=== PATIENT | female | born 1950 | race Caucasian/White ===

== ENCOUNTER 2020-07-05 10:30 | Outpatient (CLI) | payer MEDICARE, SELFPAY ==
--- NOTE | ~2020-07-05 | MM_ITS ---
EXAMINATION: MM screening natalia BI w mona HISTORY: Screening TECHNIQUE: Craniocaudal and mediolateral oblique 3-D tomosynthesis images were obtained and synthetic 2-D images were generated. CAD analysis was submitted and interpreted. COMPARISON: Comparison to multiple prior studies sequentially, with oldest reviewed study dated 11/19. BREAST PARENCHYMAL COMPOSITION: There are scattered areas of fibroglandular density. FINDINGS: There is no evidence of suspicious mass, calcification, or architectural distortion to sugg est malignancy in either breast. There has been no suspicious interval change. IMPRESSION: 1. No mammographic evidence of malignancy. 2. Recommend routine screening mammography in one year. BI-RADS Category 1: Negative Reviewed, dictated and finalized at location A.
== END 2020-07-05 10:31 | disposition home or self-care (01) ==
LOC: ANHIMG 10:32
PROVIDERS: PCP Student in an Organized Health Care Education/Training Program; Visit Provider Student in an Organized Health Care Education/Training Program
DX: Z12.31 Encounter for screening mammogram for malignant neoplasm of breast (principal)
CPT/HCPCS: 77063; 77067

== ENCOUNTER 2021-05-20 16:00 | Emergency (ER) | payer MEDICARE, SELFPAY ==
--- NOTE | 2021-05-20 16:13 | ECG_ITS ---
Measurements Intervals [place] Rate: 75 P: -9 [place]: 149 QRS: 74 QRSD: 94 T: 60 QT: 396 QTc: 444 Interpretive Statements SINUS RHYTHM BORDERLINE ST ABNORMALITY- ANTEROLAT/INF LEADS BASELINE WANDER- V6 BORDERLINE ECG Electronically Signed On 05-21-2021 10:10:21 CDT by Vikram Li D.O.
[2021-05-20 16:17] VITALS: BP 184/104; PULSE 76; RESP 18; TEMP 37.4; O2SAT 98
[2021-05-20 16:30] LABS: Basophils Percent Auto 0.6 % (0.2-1.2); Eosinophils Absolute Auto 0.1 K/mm3 (0-0.3); Eosinophils Percent Auto 1.7 % (0-4.4); Hematocrit 41.7 % (37.0-47.0); Hemoglobin 13.4 g/dL (12.0-15.0); Immature Granulocyte Absolute 0.04 K/mm3 (0.00-0.031); Immature Granulocyte Percent A 0.6 % (0-0.5); Lymphocytes Absolute Auto 1.86 K/mm3 (0.9-3.2); Lymphocytes Percent Auto 25.7 % (18.3-44.2); Mean Corpuscular HGB Conc 32.1 g/dl (32-36); Mean Corpuscular Hemoglobin 32.1 pg (26-34); Mean Corpuscular Volume 99.8 fl (80-100); Monocytes Absolute Auto 0.8 K/mm3 (0.1-0.6); Monocytes Percent Auto 10.5 % (2.6-8.5); Neutrophils Absolute Auto 4.4 K/mm3 (1.3-6.7); Neutrophils Percent Auto 60.9 % (45.5-73.1); Platelet Count Result 344 k/mm3 (150-375); Red Blood Count 4.18 M/mm3 (4.2-5.4); Red Cell Distribution Width 15.7 % (11.5-14.5); White Blood Count 7.2 K/mm3 (4.5-10.0)
[2021-05-20 16:54] LABS: Alanine Aminotransferase 16 U/L (4-35); Albumin Level 4.1 g/dL (3.5-5.1); Alkaline Phosphatase 81 U/L (38-126); Anion Gap 8 mmol/L (8-16); Aspartate Amino Transferase 28 U/L (14-36); Bilirubin,Total 0.6 mg/dL (0.2-1.3); Blood Urea Nitrogen 11 mg/dL (7-17); Calcium 9.1 mg/dL (8.4-10.2); Carbon Dioxide 23 mmol/L (22-30); Chloride 109 mmol/L (98-107); Estimated CRCL calculation 49 ml/min; Estimated Glomerular Filt Rate > 60; Glucose 91 mg/dL (65-110); Sodium 140 mmol/L (137-145)
[2021-05-20 16:59] LABS: Potassium 3.9 mmol/L (3.4-5.0)
--- NOTE | 2021-05-20 19:02 | PC.NURSE ---
pt wanting to leave due to wait times. pt encouraged to speak to pcp and cardiac providers. pt asked to return if s/s increased. pt agreeable
== END 2021-05-21 05:29 | disposition left against medical advice (07) ==
LOC: ANHED 19:25
PROVIDERS: Emergency Provider Emergency Medicine; PCP Student in an Organized Health Care Education/Training Program
DX: I10 Essential (primary) hypertension (principal)
CPT/HCPCS: 36415; 80053; 85025; 93005; 99199

== ENCOUNTER 2021-05-28 01:46 | Day surgery (SDC) | payer MEDICARE, SELFPAY ==
[2021-05-27 17:10] VITALS: BMI 22.8
[2021-05-28] VITALS (22 sets, daily range): BP systolic 74–186; BP diastolic 43–99; PULSE 60–80; RESP 16–20; TEMP 36.4–36.6; O2SAT 96–100; BMI 23.0
--- NOTE | 2021-05-28 07:00 | SUR.PREOP ---
ARRIVES AMBULATORY TO [facility] 5 W/ , YISSEL, AT SIDE. HERE FOR SCHEDULED C W/ DR. TIERNEY. DENIES CP OR SOB ON ARRIVAL. ORIENTED TO ROOM, PLAN OF CARE, PROCEDURE. IV STARTED, LABS SENT, VS OBTAINED, CONSENT SIGNED, SKIN PREPPED, PULSES MARKED. WILL CONTINUE TO MONITOR.
[2021-05-28 07:21] LABS: Basophils Percent Auto 0.5 % (0.2-1.2); Eosinophils Absolute Auto 0.2 K/mm3 (0-0.3); Eosinophils Percent Auto 2.2 % (0-4.4); Hematocrit 40.8 % (37.0-47.0); Hemoglobin 13.1 g/dL (12.0-15.0); Immature Granulocyte Absolute 0.03 K/mm3 (0.00-0.031); Immature Granulocyte Percent A 0.4 % (0-0.5); Mean Corpuscular HGB Conc 32.1 g/dl (32-36); Mean Corpuscular Hemoglobin 32.3 pg (26-34); Mean Corpuscular Volume 100.5 fl (80-100); Mean Platelet Volume 8.7 fl (7.4-10.4); Monocytes Absolute Auto 0.9 K/mm3 (0.1-0.6); Monocytes Percent Auto 10.5 % (2.6-8.5); Neutrophils Absolute Auto 5.3 K/mm3 (1.3-6.7); Neutrophils Percent Auto 64.4 % (45.5-73.1); Platelet Count Result 311 k/mm3 (150-375); Red Blood Count 4.06 M/mm3 (4.2-5.4); Red Cell Distribution Width 15.5 % (11.5-14.5); White Blood Count 8.2 K/mm3 (4.5-10.0)
[2021-05-28 07:30] LABS: Anion Gap 5 mmol/L (8-16); Blood Urea Nitrogen 19 mg/dL (7-17); Calcium 9.3 mg/dL (8.4-10.2); Carbon Dioxide 27 mmol/L (22-30); Chloride 107 mmol/L (98-107); Estimated CRCL calculation 44 ml/min; Estimated Glomerular Filt Rate > 60; Glucose 100 mg/dL (65-110); Potassium 4.1 mmol/L (3.4-5.0); Sodium 139 mmol/L (137-145)
[2021-05-28] MEDS: SODIUM CHLORIDE 0.9% IV 500 ML 100 ML IV CONT (07:30)
--- NOTE | 2021-05-28 09:11 | WPDMODSED ---
Moderate Sedation Note-Pt Data Patient Data Allergies Allergy/AdvReac Type Severity Reaction Status Date / Time Sulfa (Sulfonamide Allergy Unknown Nausea Verified 05/28/21 08:06 Antibiotics) Home Medications Medication Instructions Recorded Confirmed Type apremilast 30 mg tablet 30 mg PO BID 07/10/20 05/28/21 History aspirin 81 mg tablet,delayed 81 mg PO DAILY 07/10/20 05/28/21 History release escitalopram oxalate 20 mg tablet 20 mg PO DAILY 07/10/20 05/28/21 History folic acid 1 mg tablet 1 mg PO DAILY 07/10/20 05/28/21 History lisinopril 40 mg tablet 40 mg PO DAILY 07/10/20 05/28/21 History rosuvastatin 40 mg tablet 40 mg PO DAILY 07/10/20 05/28/21 History tofacitinib 11 mg tablet,extended 11 mg PO DAILY 07/10/20 05/28/21 History release 24 hr tramadol 50 mg tablet 50 mg PO Q6H PRN 07/10/20 05/27/21 History zolpidem 10 mg tablet 10 mg PO HS 07/10/20 05/27/21 History alprazolam 0.25 mg PO TID PRN 05/28/21 05/28/21 History carvedilol 12.5 mg PO BID 05/28/21 05/28/21 History Current Medications: Active Medications Sodium Chloride (Normal Saline Iv) 500 mls @ 100 mls/hr IV CONT .Q5H QUIN Sedation/Anesthesia: No previous sedation/anesthesia problems (including family history). [facility] Past Medical History Medical History (Updated 07/10/20 @ 14:20 by Magy Jamison) Heart attack Hypertension Macular degeneration Psoriatic arthritis Rheumatoid arthritis Surgical History Surgical History History of arthroscopic knee surgery History of carpal tunnel release History of hysterectomy Family History Family History Father Family history of premature coronary heart disease Family history of coronary artery disease Mother Hypertension Family history of elevated blood lipids Sibling Hypertension Social History Social History Smoking status: Former smoker Tobacco type: cigarettes Second hand tobacco smoke exposure: No Additional smoking assessment comments: 20 years 1/2-1PPD Alcohol intake: never Substance use: never Substance use type: does not use Living arrangements: with family Sexual Orientation (if Verbalized by the Patient): Straight or Heterosexual Spiritual care concerns: No Mod Sed Physical Exam Physical Exam Pre Procedural Exam: Normal: Airway Hours since solid foods: 10 Hours since liquid intake: 10 Mallampati Classification: class II Internal Medicine - PN: Obj Da Vital Signs Vital Signs: Vital Signs - 24 hr 05/28/21 07:15 Temperature 36.6 C Pulse Rate 73 Respiratory Rate 18 Blood Pressure 186/99 H Pulse Oximetry 100 Meds/Results Medications: Active Medications Generic Name Dose Route Start Last Admin Trade Name Freq PRN Reason Stop Dose Admin Sodium Chloride 500 mls @ 100 mls/hr 05/28/21 07:00 Normal Saline Iv IV CONT .Q5H QUIN Labs CBC & Chem 7: 05/28/21 07:14 05/28/21 07:14 Labs: Laboratory Results - last 24 hr 05/28/21 05/28/21 07:14 07:14 WBC 8.2 RBC 4.06 L Hgb 13.1 Hct 40.8 MCV 100.5 H MCH 32.3 MCHC 32.1 RDW 15.5 H Plt Count 311 MPV 8.7 Immature Gran % (Auto) 0.4 Neut % (Auto) 64.4 Lymph % (Auto) 22.0 [place] % (Auto) 10.5 H Eos % (Auto) 2.2 Baso % (Auto) 0.5 Lymph # (Auto) 1.80 [place] # (Auto) 0.9 H Eos # (Auto) 0.2 Baso # (Auto) 0.0 Abs Immat Gran (auto) 0.03 Absolute Neuts (auto) 5.3 Absolute Nucleated RBC 0.0 Nucleated RBC % 0.0 Sodium 139 Potassium 4.1 Chloride 107 Carbon Dioxide 27 Anion Gap 5 L BUN 19 H Creatinine 0.90 Estim Creat Clear Calc 44 Estimated GFR > 60 Glucose 100 Calcium 9.3 ASA Classification/Sedation ASA Classification/Sedation ASA Class: III Emergent: No Risks: Risks, benefits and alternativ
--- NOTE | 2021-05-28 09:13 | WPDHPUPDATE1 ---
History and Physical Update Update Date/Time: 05/28/21 09:13 History and Physical has been reviewed, including an updated exam of the patient. There are NO changes in the patient's condition. Risks, benefits, and alternatives have been discussed and questions answered. Patient agrees to proceed with procedure.
--- NOTE | 2021-05-28 09:53 | WPDCARDPROC ---
Cardiac Cath Procedure Note Date of procedure:: 05/28/21 Performing physician:: Donaldo Zaragoza MD Procedure Procedure note:: LEFT HEART CATHETERIZATION, CORONARY ANGIOGRAM AND PERIPHERAL ANGIOGRAM REPORT DATE OF PROCEDURE: 05/28/2021 INDICATION FOR PROCEDURE: Dyspnea on exertion, known CAD, history of PCI/stenting BRIEF CLINICAL HISTORY: 71-year-old female with CAD, history of inferior ST-elevation SC status post primary PCI with placement of 2 drug-eluting stents in mid RCA on 03/19/2012; status post staged PCI of mid LCX using drug-eluting stent on 04/13/2012; hypertension. Patient has been experiencing dyspnea on exertion. She had MPI done on 12/24/2020 which reportedly showed findings suggestive of ischemia on the EKG; perfusion imaging was negative for ischemia with normal LVEF. Due to patient's ongoing persistent symptoms of dyspnea on exertion, coronary angiogram was recommended to re-evaluate coronary anatomy and rule out InStent restenosis. Benefits and risks of the procedure were discussed with the patient in depth, and informed consent was obtained prior to the procedure. Risks of the procedure include but are not limited to vascular complications including groin hematoma, retroperitoneal bleed, vessel perforation; periprocedural SC, cardiac arrhythmias, stroke, contrast induced nephropathy, and . After discussing all the benefits, risks and alternatives, patient was willing to proceed with the procedure. PROCEDURES PERFORMED: 1. Left heart catheterization- Selective left and right coronary angiogram; left ventriculogram and hemodynamic assessment 2. Distal abdominal aortogram with bilateral iliac runoff 2. Selective right common femoral angiogram 3. Moderate sedation-CPT code 77493 MODERATE SEDATION: Midazolam 2 mg; fentanyl 50 mcg; Start time 0924 , Stop time 0949 ; Total [id number] time 25 minutes; Aris Nunez RN was trained observer for moderate sedation. ACCESS SITE: Right common femoral artery PROCEDURE NOTE: After obtaining informed consent, patient was brought to catheterization lab and prepped and draped in a usual sterile manner. After local anesthesia with lidocaine, right common femoral artery access was taken with micropuncture needle followed by insertion of a 5 Kiswahili sheath. There was difficulty in advancing the diagnostic catheter in the common iliac artery. Selective right common femoral angiogram showed stenosis in the iliac artery. Therefore, 035 Glidewire was used to navigate the stenosis in the iliac artery and the aneurysm in the distal abdominal aorta. Next, Selective left and right coronary angiogram was performed using 5 Kiswahili JL4 and JR4 catheters respectively. Orthogonal views were taken. Next, a 5 Kiswahili pigtail catheter was advanced in the LV cavity and was flushed with normal saline. LV pressure measurement was performed. After this, left ventriculogram was performed. The catheter was flushed again, and gradient across the aortic valve was measured on the pullback of the catheter . Due to early of difficulty in advancing the wire in the iliac artery, we proceeded with the distal abdominal aortogram using the pigtail catheter with DSA. After completion of the procedure, sheath was secured in place which will be taken out in the laborer pie [employer] holding area, manual pressure will be used for local hemostasis. Patient had severe hypertension in the [employer], and received 20 mg of IV hydralazine at 2 different intervals with improvement in the blood pressure. Patient tolerated procedure well without any immediate procedure related complications. FINDINGS: LEFT MAIN CORONARY: The left main coronary artery is a medium to large caliber vessel with minimal irregularities, no significant focal stenosis. The vessel bifurcates into LAD and left circumflex branches. LEFT ANTERIOR DESCENDING ARTERY: The proximal LAD is a medium to large caliber vessel. There is eccentric about 40% stenosis at t
[2021-05-28] MEDS: SODIUM CHLORIDE 0.9% IV 1,000 ML 125 ML IV CONT (10:30)
--- NOTE | 2021-05-28 17:45 | SUR.PHASEII ---
DISCHARGE INSTRUCTIONS GIVEN AND REVIEWED W/ PT AT 1735. QUESTIONS ANSWERED AND VOICED UNDERSTANDING OF ALL. DISCHARGED HOME, OUT VIA WC, TO 'S WAITING CAR AT 1745, WITH ALL PERSONAL BELONGINGS AND DISCHARGE PACKET. VOICES NO C/O. NO DISTRESS NOTED.
== END 2021-05-28 17:45 | disposition home or self-care (01) ==
PROVIDERS: PCP Student in an Organized Health Care Education/Training Program; Visit Provider Internal Medicine Cardiovascular Disease
PROC: 4A023N7 Measurement of Cardiac Sampling and Pressure, Left Heart, Percutaneous Approach (ICD-10-PCS; CPT 93452; principal; 2021-05-28 08:30)
PROC: (CPT 75625; 2021-05-28 08:30)
DX: I25.10 Atherosclerotic heart disease of native coronary artery without angina pectoris (principal); R94.39 Abnormal result of other cardiovascular function study; R06.09 Other forms of dyspnea; Z95.5 Presence of coronary angioplasty implant and graft; I10 Essential (primary) hypertension; I73.9 Peripheral vascular disease, unspecified; I25.2 Old myocardial infarction; M06.9 Rheumatoid arthritis, unspecified; L40.50 Arthropathic psoriasis, unspecified; H35.30 Unspecified macular degeneration; Z79.82 Long term (current) use of aspirin; Z87.891 Personal history of nicotine dependence
CPT/HCPCS: 36140; 36415; 75625; 80048; 85025; 93458; C1769; C1887; C1894; J0360; J0461; J1644; J2250; J3010; J7030; J7040

== ENCOUNTER 2021-06-18 08:25 | Outpatient (CLI) | payer MEDICARE, SELFPAY ==
--- NOTE | ~2021-06-18 | US_ITS ---
EXAMINATION: US aorta EXAM DATE: 06/18/2021 09:14 INDICATION: Abdominal aortic aneurysm, w/o rupture AAA screening. TECHNIQUE: Multiple grayscale and Doppler images of the abdominal aorta were obtained (by a technolog ist who performed the scan) and subsequently reviewed. Correlation is made to CT abdomen 05/16/2019. FINDINGS: Mild scattered aortic arterial sclerosis. There is mild aortic ectasia. Abdominal aorta measures 2.6 x 2.9 cm proximally, 2.6 x 2.6 cm mid aspect, 2.3 x 2.3 cm distally. Right and left common carotid bi furcations measure 1.2 and 0.8 cm respectively. IMPRESSION: Mild abdominal aortic arterial sclerosis and ectasia. Reviewed, dictated and finalized at location A.
== END 2021-06-18 08:26 | disposition home or self-care (01) ==
PROVIDERS: PCP Student in an Organized Health Care Education/Training Program; Visit Provider Nurse Practitioner Adult Health
DX: I71.4 Abdominal aortic aneurysm, without rupture (principal)
CPT/HCPCS: 76775

== ENCOUNTER 2021-11-13 12:21 | Outpatient (CLI) | payer MEDICARE, SELFPAY ==
--- NOTE | ~2021-11-13 | XR_ITS ---
XR chest 2V DATE: 11/13/2021 12:41 INDICATION: Psoriatic arthritis TECHNIQUE: 2 views COMPARISON: 07/01/2018 chest FINDINGS: Normal heart size. No hilar or mediastinal enlargement. Bilateral pulmonary hyperinflatio n consistent with COPD. There is an abnormal asymmetric approximately 1.5 cm opacity overlying the left perihilar area appar ently in the superior segment of the left lower lobe suspicious for malignant lung mass. CT thorax i s recommended. No pulmonary infiltrate or consolidation. No pleural effusion or pneumothorax. Diffuse osteopenia. 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 Cuevas on 11/13/2021 at 1252 hours with the report finding and recommendation for CT thorax Reviewed, dictated and finalized at location A. N CONTROL TECHNICIAN IMPRESSION: New approximately 1.5 cm mass in the superior segment of the left l ower lobe, likely bronchogenic carcinoma COPD A voicemail at [phone] Cuevas on 11/13/2021 at 1252 hours wi th the report finding and recommendation for CT thorax
== END 2021-11-13 12:22 ==
LOC: MICIMG 12:22
PROVIDERS: PCP Student in an Organized Health Care Education/Training Program; Visit Provider Internal Medicine Rheumatology
DX: L40.50 Arthropathic psoriasis, unspecified (principal); Z51.81 Encounter for therapeutic drug level monitoring; Z79.899 Other long term (current) drug therapy; J44.9 Chronic obstructive pulmonary disease, unspecified
CPT/HCPCS: 71046

== ENCOUNTER 2022-01-08 14:36 | Observation (INO) | payer MEDICARE, SELFPAY ==
--- NOTE | ~2022-01-08 | CT_ITS ---
EXAMINATION: CT abdomen pelvis w con DATE: 01/10/2022 11:44 INDICATION: Abdominal pain. Bladder spasm. TECHNIQUE: Computed tomography (CT) of the abdomen and pelvis was performed with 100 mL Omnipaque-350 intravenous contrast. Automated exposure control and iterative reconstruction technique were employe d. The dose-length product was 257.65 mGy-cm. COMPARISON: 05/16/2019 FINDINGS: Lung bases are clear. Heart size is normal. No pericardial or pleural effusion. Coronary artery calci fications versus stenting. Focal hepatic steatosis at the ligamentum teres. Gallbladder, spleen, panc reas and bilateral adrenal glands are normal. Mild bilateral hydroureteronephrosis with prominent rig ht extrarenal pelvis. This likely related to either bladder outlet obstruction or neurogenic bladder with diffuse bladder wall thickening and numerous small bladder diverticula. There is mild stranding in the fat abutting the bladder suspicious for cystitis. Bowels including the appendix are normal. No free intraperitoneal gas or fluid. No pathologically enlarged abdominal or pelvic lymphadenopathy. T here is calcified atherosclerosis of the aorta and many of the other arteries. Mild lumbar levoscolio sis with severe spondylosis. Bone islands at L4 and S1. IMPRESSION: 1. Bladder wall thickening with surrounding inflammatory stranding suspicious for cystitis. Correlate with urinalysis. 2. Mild bilateral hydroureteronephrosis and multiple diverticula in the bladder, both findings likely related to either chronic bladder outlet obstruction or neurogenic bladder. Reviewed, dictated and finalized at location A. IMPRESSION: 1. Bladder wall thickening with surrounding inflammatory stranding suspicious f or cystitis. Correlate with urinalysis. 2. Mild bilateral hydroureteronephrosis and multiple diverticula in the bladder , both findings likely related to either chronic bladder outlet obstruction or neurogenic bladder.
[2022-01-08 14:48] VITALS: BP 126/79; PULSE 123; RESP 16; TEMP 36.9; O2SAT 98
[2022-01-08 16:42] LABS: Basophils Percent Auto 0.1 % (0.2-1.2); Hematocrit 39.4 % (37.0-47.0); Hemoglobin 13.3 g/dL (12.0-15.0); Immature Granulocyte Absolute 0.08 K/mm3 (0.00-0.031); Immature Granulocyte Percent A 0.6 % (0-0.5); Lymphocytes Absolute Auto 0.58 K/mm3 (0.9-3.2); Lymphocytes Percent Auto 4.2 % (18.3-44.2); Mean Corpuscular HGB Conc 33.8 g/dl (32-36); Mean Corpuscular Hemoglobin 32.7 pg (26-34); Mean Corpuscular Volume 96.8 fl (80-100); Mean Platelet Volume 9.2 fl (7.4-10.4); Monocytes Absolute Auto 0.3 K/mm3 (0.1-0.6); Monocytes Percent Auto 1.9 % (2.6-8.5); Neutrophils Percent Auto 93.2 % (45.5-73.1); Platelet Count Result 393 k/mm3 (150-375); Red Blood Count 4.07 M/mm3 (4.2-5.4); Red Cell Distribution Width 14.9 % (11.5-14.5)
[2022-01-08 16:49] LABS: Anion Gap 10 mmol/L (8-16); Blood Urea Nitrogen 38 mg/dL (7-17); Calcium 10.3 mg/dL (8.4-10.2); Carbon Dioxide 17 mmol/L (22-30); Chloride 98 mmol/L (98-107); Estimated CRCL calculation 24 ml/min; Estimated Glomerular Filt Rate 30; Glucose 175 mg/dL (65-110); Potassium 4.6 mmol/L (3.4-5.0); Sodium 125 mmol/L (137-145)
[2022-01-08 16:54] LABS: Add Urine Microscopic? YES; Appearance Urine Cloudy (Clear); Bilirubin Urine Negative (Negative); Blood Urine 2+ (Negative); Budding Yeast Urine Present /hpf; Color Urine Amber (Yellow); Glucose Urine UA 1+ mg/dL (Negative); Ketones Urine Trace mg/dL (Negative); Leukocyte Esterase Ur 3+ LEU/UL (Negative); Nitrate Urine Negative (Negative); Protein Urine 2+ mg/dL (Negative); RBC Urine 21-50 /hpf (0-2); Specific Grav Ur 1.013 (1.001-1.035); Squamous Epithelial Cell Urine Few /hpf (Few); Urobilinogen Urine Negative mg/dL (<2.0); WBC Urine >75 /hpf
--- NOTE | 2022-01-08 17:13 | ED.FEMALEGU ---
HPI - Female Genitourinary General Chief complaint: Urogenital-Female Stated complaint: UTI for 3 weeks Time Seen by Provider: 01/08/22 17:08 History of Present Illness HPI Narrative: 71-year-old female presents the emergency room with complaints of dysuria, suprapubic pain, low back pain. Patient states that she has been treated for urinary tract infection for 3 weeks. Patient states that her PCP has given her 3 courses of Macrobid with no relief of symptoms. Patient denies fever. Related Data Home Medications Medication Instructions Recorded Confirmed apremilast 30 mg tablet 30 mg PO BID 07/10/20 05/28/21 aspirin 81 mg tablet,delayed 81 mg PO DAILY 07/10/20 05/28/21 release escitalopram oxalate 20 mg tablet 20 mg PO DAILY 07/10/20 05/28/21 folic acid 1 mg tablet 1 mg PO DAILY 07/10/20 05/28/21 lisinopril 40 mg tablet 40 mg PO DAILY 07/10/20 05/28/21 rosuvastatin 40 mg tablet 40 mg PO DAILY 07/10/20 05/28/21 tofacitinib 11 mg tablet,extended 11 mg PO DAILY 07/10/20 05/28/21 release 24 hr tramadol 50 mg tablet 50 mg PO Q6H PRN 07/10/20 05/27/21 zolpidem 10 mg tablet 10 mg PO HS 07/10/20 05/27/21 alprazolam 0.25 mg PO TID PRN 05/28/21 05/28/21 carvedilol 12.5 mg PO BID 05/28/21 05/28/21 Allergies Allergy/AdvReac Type Severity Reaction Status Date / Time Sulfa (Sulfonamide AdvReac Unknown Nausea Verified 05/28/21 10:10 Antibiotics) Review of Systems Review of Systems: CONSTITUTIONAL: Denies fever, chills, or sweats. EYES: Denies visual changes, redness, or discharge. ENT: Denies rhinorrhea, congestion, sore throat, or otalgia. CARDIOVASCULAR: Denies chest pain, palpitations, or edema. RESPIRATORY: Denies cough or dyspnea. GASTROINTESTINAL: Suprapubic tenderness GENITOURINARY: Denies dysuria or hematuria. SKIN: Denies rash or itching. MUSCULOSKELETAL: Denies back pain, joint pain, or myalgia. NEUROLOGIC: Denies headache, numbness, dizziness, or weakness. PSYCHIATRIC: Denies anxiety or depression. [facility] Past Medical History Medical History Heart attack Hypertension Macular degeneration Psoriatic arthritis Rheumatoid arthritis Surgical History Surgical History History of arthroscopic knee surgery History of carpal tunnel release History of hysterectomy Family History Family History Father Family history of premature coronary heart disease Family history of coronary artery disease Mother Hypertension Family history of elevated blood lipids Sibling Hypertension Social History Social History Smoking status: Former smoker Tobacco type: cigarettes Second hand tobacco smoke exposure: No Additional smoking assessment comments: 20 years 1/2-1PPD Alcohol intake: never Substance use: never Substance use type: does not use Sexual Orientation (if Verbalized by the Patient): Straight or Heterosexual Spiritual care concerns: No Exam Narrative: GENERAL: Well-appearing, well-nourished, and in no acute distress. HEAD: Normocephalic, atraumatic. EYES: PERRLA and EOMI. ENT: Nares clear, no rhinorrhea or epistaxis. Mucous membranes moist. Oropharynx without tonsillar hypertrophy exudate or other lesions. Bilateral TMs pearly martinez nonbulging NECK: Supple. No adenopathy or masses. No carotid bruits or JVD CHEST: Clear to auscultation. No respiratory distress. No wheezes rales or rhonchi HEART: Regular rate and rhythm. No murmur heard. Normal peripheral pulses. ABDOMEN: Suprapubic tenderness EXTREMITIES: Normal range of motion. No edema. SKIN: Warm, dry, no rash. NEURO: No focal deficits. Alert and oriented x3. PSYCH: Normal mood and affect. Course Vital Signs Vital signs: Vital Signs Temperature 36.9 C 01/08/22 14:48 Pulse Rate 123 H 01/08/22 14:48 Re
[2022-01-08 17:15] VITALS: BP 124/80; PULSE 108; RESP 16; TEMP 36.9; O2SAT 98
[2022-01-08] MEDS: CIPROFLOXACIN 400 MG/D5W 200ML 200 ML 200 MG IVPB (17:33)
[2022-01-08] MEDS: SODIUM CHLORIDE 0.9% IV 1,000 ML 999 ML IV CONT (17:33)
[2022-01-08 18:00] VITALS: BP 138/80; PULSE 82; RESP 16; TEMP 36.6; O2SAT 98
[2022-01-08 19:00] VITALS: BP 130/78; PULSE 92; RESP 16; O2SAT 98
[2022-01-08 19:13] LABS: Lactic Acid Reflex 1.3 mmol/L (0.7-2.1)
[2022-01-08 19:30] VITALS: BP 128/74; PULSE 78; RESP 16; TEMP 36.8; O2SAT 97
[2022-01-08] MEDS: SODIUM CHLORIDE 0.9% IV 1,000 ML 125 ML IV CONT (19:45)
[2022-01-08 20:33] VITALS: BMI 21.6
[2022-01-08 20:40] VITALS: BP 156/79; PULSE 90; RESP 18; TEMP 36.4; O2SAT 97
--- NOTE | 2022-01-08 20:45 | PM.IMHP ---
H&P: HPI History of Present Illness Date/Time: 01/08/22 20:45 Chief Complaint: Pain and burning with urination Narrative: This is a 71-year-old female with past medical history significant for RA, hypertension, chronic pain. Patient presented to the emergency room due to pain and burning with urination pain in the lower abdomen back pain patient has been treated with Macrobid for 2 weeks in the outpatient setting which did not resolve has had poor appetite as well denies any nausea ,vomiting or diarrhea, has had chills. Preliminary workup was significant for creatinine of 1.7 sodium 125 urinalysis was significant for numerous WBCs present. Patient has been admitted for further evaluation, management and treatment. Review of Systems Review of Systems: Pain and burning with urination, poor appetite. Constitutional: Constitutional: Denies chills, Denies fever(s), Denies malaise, Reports poor appetite and Reports weakness Eyes: Eyes: Denies change in vision ENT: Denies dysphagia, Denies vertigo, Denies nasal congestion, Denies nasal discharge, Denies nasal obstruction and Denies odynophagia Cardiovascular: Cardiovascular: Denies pedal edema, Denies edema, Denies leg edema, Denies lightheadedness, Denies radiating jaw, neck or arm pain, Denies palpitations, Denies dyspnea on exertion, Denies orthopnea and Denies paroxysmal nocturnal dyspnea Respiratory: Respiratory: Denies cough, Denies excessive phlegm production and Denies dyspnea Gastrointestinal: Gastrointestinal: Reports abdominal pain, Denies dyspepsia, Denies heartburn, Denies diarrhea, Denies nausea and Denies vomiting Genitourinary: Genitourinary: Reports dysuria, Reports pelvic pain and Reports flank pain Musculoskeletal: Musculoskeletal: Denies arthralgias, Denies joint swelling and Denies muscle weakness Integumentary/Breasts: Skin/Breast: Denies rash Neurologic: Denies focal weakness and Denies Sensory deficit (Neuro) Psychiatric: Psychiatric: Reports no additional psychiatric complaints and Reports as per HPI Endocrine: Endocrine: Denies cold intolerance, Denies heat intolerance, Denies polyphagia, Denies polydipsia and Denies palpitations Hematologic/Lymphatic: Hematologic/Lymphatic: Reports no additional hematologic/lymphatic complaints and Reports as per HPI Allergic/Immunologic: Allergic/Immunologic: Reports no additional allergic/immunologic complaints and Reports as per HPI [facility] Past Medical History Medical History (Updated 01/09/22 @ 04:38 by Daisy Harrison MD) Heart attack Hypertension Macular degeneration Psoriatic arthritis Rheumatoid arthritis Surgical History Surgical History History of arthroscopic knee surgery History of carpal tunnel release History of hysterectomy Family History Family History Father Family history of premature coronary heart disease Family history of coronary artery disease Mother Hypertension Family history of elevated blood lipids Sibling Hypertension Social History Social History Smoking packs per day: 0.5 Smoking cigarettes per day: 10.0 Years smoked: 20 Smoking pack-years: 10.00 Smoking status: Former smoker Tobacco type: cigarettes Second hand tobacco smoke exposure: No Additional smoking assessment comments: 20 years 1/2-1PPD Alcohol intake: never Substance use: never Substance use type: does not use Sexual Orientation (if Verbalized by the Patient): Straight or Heterosexual Spiritual care concerns: No Meds Home Medications and Allergies Home Medications Medication Instructions Recorded Confirmed Type apremilast 30 mg tablet 30 mg PO BID 07/10/20 01/08/22 History aspirin 81 mg tablet,delayed 81 mg PO DAILY 07/10/20 01/08/22 History release escitalopram oxalate 20 mg tablet 20 mg PO DAILY 07/10
--- NOTE | 2022-01-08 20:56 | PC.NURSE ---
This patient, Brianna Garcia, was admitted to Medical Room 344-01. Patient/family oriented to hospital policies and general routines including ID bracelet, bed and alarms, visiting hours, pain management, procedures, bathroom and other care routines, personal items, smoking policy, room service/diet, and visiting hours. Information on how to activate the Rapid Response Team has been discussed. Patient/Family are encouraged to report perceived risks to care and to ask questions if they do not understand what they are told or what they should do.
[2022-01-08] MEDS: ACETAMINOPHEN 325 MG TABLET 650 MG PO (22:26)
[2022-01-09 05:25] VITALS: BP 170/80; PULSE 109; RESP 18; TEMP 36.2; O2SAT 98
[2022-01-09] MEDS: hydrALAZINE HCL 20 MG/ML VIAL 10 MG IV PUSH (05:43)
[2022-01-09 06:21] LABS: Anion Gap 8 mmol/L (8-16); Blood Urea Nitrogen 30 mg/dL (7-17); Calcium 7.7 mg/dL (8.4-10.2); Carbon Dioxide 17 mmol/L (22-30); Chloride 109 mmol/L (98-107); Estimated CRCL calculation 32 ml/min; Estimated Glomerular Filt Rate 44; Glucose 130 mg/dL (65-110); Potassium 3.8 mmol/L (3.4-5.0); Sodium 134 mmol/L (137-145)
[2022-01-09 06:31] VITALS: BP 166/74
[2022-01-09] MEDS: traMADol HCL (*CRX) 50 MG TABLET PO (08:50)
--- NOTE | 2022-01-09 09:30 | P.PNIM_ITS ---
Progress Note: A&P Assessment and Plan (1) Urinary tract infection: Code(s): N39.0 - Urinary tract infection, site not specified Status: Acute Assessment and Plan: * Patient was treated in the outpatient setting with Macrobid which did not resolve * Complaints of burning, urgency, and frequency * Continue Rocephin * Monitor output * Trend symptoms * Await cultures * Tailor to culture results * Still having some pelvic pain * Post residual void ordered * Almost wonder if this is related to the plaque psoriasis and her current treatments to this (2) Hyponatremia: Code(s): E87.1 - Hypo-osmolality and hyponatremia Status: Acute Assessment and Plan: * Patient appears euvolemic * Possible SIADH as patient with lung mass. * Currently on NS, can be DC'd * Na 125, increased today 134 * Continue to trend (3) Mass of left lung: Code(s): R91.8 - Other nonspecific abnormal finding of lung field Status: Acute Assessment and Plan: * Patient needs biopsy * Follow-up in outpatient setting (4) Rheumatoid arthritis: Code(s): M06.9 - Rheumatoid arthritis, unspecified Status: Acute Assessment and Plan: * Appears to be in remission * Continue to monitor * Follow-up in outpatient setting (5) Hypertension: Code(s): I10 - Essential (primary) hypertension Status: Acute Assessment and Plan: * BP 166/74 * Continue home med: Lisinopril 40mg PO daily, Carvedilol 12.5mg pO BID, * Trend BP * Adjust therapy as indicated (6) HELGA (acute kidney injury): Code(s): N17.9 - Acute kidney failure, unspecified Status: Acute Assessment and Plan: * BUN/Cr 30/1.20, down from admission * IV fluids * Continue trend labs * Likely to be pre renal azotemia * avoid nephrotoxic medications (7) Urinary obstruction: Code(s): N13.9 - Obstructive and reflux uropathy, unspecified Status: Acute Assessment and Plan: * Post residual void ordered * Continue to trend urine Time Spent With Patient Time with patient: Greater than 35 minutes Subjective Date/time seen: 01/09/22 0930 Interval history: Date/Time: 01/08/22 20:45 Narrative: This is a 71-year-old female with past medical history significant for RA, hypertension, chronic pain. Patient presented to the emergency room due to pain and burning with urination pain in the lower abdomen back pain patient has been treated with Macrobid for 2 weeks in the outpatient setting which did not resolve has had poor appetite as well denies any nausea ,vomiting or diarrhea, has had chills. Preliminary workup was significant for creatinine of 1.7 sodium 125 urinalysis was significant for numerous WBCs present. Patient has been admitted for further evaluation, management and treatment. Date/Time 01/09/22 8678 Patient seems to be doing well today. She did state that she still having pressure in abdomen or her bladder is. She states that she feels that she is fully obtain however she has a lot of pressure after she urinates. Patient has a long course of antibiotics Macrobid. Sounds like she has been dealing with this for about a month. Patient also had said that she had a IM injection Rocephin 1 time and was on fluconazole for 2 weeks. Patient did state that sometimes she wears pads because she can not hold it. Patient denies any ches
--- NOTE | 2022-01-09 09:30 | PM.IMPN ---
Progress Note: A&P Assessment and Plan (1) Urinary tract infection: Code(s): N39.0 - Urinary tract infection, site not specified Status: Acute Assessment and Plan: Patient was treated in the outpatient setting with Macrobid which did not resolve Complaints of burning, urgency, and frequency Continue Rocephin Monitor output Trend symptoms Await cultures Tailor to culture results Still having some pelvic pain Post residual void ordered Almost wonder if this is related to the plaque psoriasis and her current treatments to this (2) Hyponatremia: Code(s): E87.1 - Hypo-osmolality and hyponatremia Status: Acute Assessment and Plan: Patient appears euvolemic Possible SIADH as patient with lung mass. Currently on NS, can be DC'd Na 125, increased today 134 Continue to trend (3) Mass of left lung: Code(s): R91.8 - Other nonspecific abnormal finding of lung field Status: Acute Assessment and Plan: Patient needs biopsy Follow-up in outpatient setting (4) Rheumatoid arthritis: Code(s): M06.9 - Rheumatoid arthritis, unspecified Status: Acute Assessment and Plan: Appears to be in remission Continue to monitor Follow-up in outpatient setting (5) Hypertension: Code(s): I10 - Essential (primary) hypertension Status: Acute Assessment and Plan: BP 166/74 Continue home med: Lisinopril 40mg PO daily, Carvedilol 12.5mg pO BID, Trend BP Adjust therapy as indicated (6) HELGA (acute kidney injury): Code(s): N17.9 - Acute kidney failure, unspecified Status: Acute Assessment and Plan: BUN/Cr 30/1.20, down from admission IV fluids Continue trend labs Likely to be pre renal azotemia avoid nephrotoxic medications (7) Urinary obstruction: Code(s): N13.9 - Obstructive and reflux uropathy, unspecified Status: Acute Assessment and Plan: Post residual void ordered Continue to trend urine Time Spent With Patient Time with patient: Greater than 35 minutes Subjective Date/time seen: 01/09/22 0930 Interval history: Date/Time: 01/08/22 20:45 Narrative: This is a 71-year-old female with past medical history significant for RA, hypertension, chronic pain. Patient presented to the emergency room due to pain and burning with urination pain in the lower abdomen back pain patient has been treated with Macrobid for 2 weeks in the outpatient setting which did not resolve has had poor appetite as well denies any nausea ,vomiting or diarrhea, has had chills. Preliminary workup was significant for creatinine of 1.7 sodium 125 urinalysis was significant for numerous WBCs present. Patient has been admitted for further evaluation, management and treatment. Date/Time 01/09/22 0930 Patient seems to be doing well today. She did state that she still having pressure in abdomen or her bladder is. She states that she feels that she is fully obtain however she has a lot of pressure after she urinates. Patient has a long course of antibiotics Macrobid. Sounds like she has been dealing with this for about a month. Patient also had said that she had a IM injection Rocephin 1 time and was on fluconazole for 2 weeks. Patient did state that sometimes she wears pads because she can not hold it. Patient denies any chest pain, shortness a month, nausea, vomiting, diarrhea, constipation. Review of Systems Review of Systems: All systems reviewed & are unremarkable except as noted in HPI and below Exam Const: General: cooperative, healthy appearing, comfortable, no acute distress, well developed, alert, awake, ill appearing acutely and tired appearing Nutritional Appearance: well nourished and thin Orientation/consciousness: patient oriented x3 Limitations: no limitations HENMT: Head: normal to inspection, normocephalic and atraumatic Ea
[2022-01-09] MEDS: ASPIRIN 81 MG ENTERIC TABLET PO (10:06)
[2022-01-09] MEDS: FOLIC ACID 1 MG TABLET PO (10:06)
[2022-01-09] MEDS: ROSUVASTATIN 10 MG TABLET 40 MG PO (10:06)
[2022-01-09] MEDS: ENOXAPARIN 40 MG/0.4 ML SYRINGE SUB-Q (10:06)
[2022-01-09] MEDS: ESCITALOPRAM OXALATE 10 MG TABLET 20 MG PO (10:06)
[2022-01-09] MEDS: carvediloL 12.5 MG TABLET PO ×2 (10:06→21:19)
--- NOTE | 2022-01-09 11:08 | PC.NURSE ---
Patient went to the bathroom this nurse bladder scan after patient voided to see if she was retaining any urine 21 was the amount the bladder scanner was reading.
[2022-01-09 14:36] VITALS: BP 119/65; PULSE 96; RESP 18; TEMP 36.6; O2SAT 98
[2022-01-09 15:16] VITALS: BMI 21.6
[2022-01-09 20:00] VITALS: PULSE 96; RESP 18; O2SAT 98
[2022-01-09 21:19] VITALS: PULSE 74
[2022-01-09] MEDS: ZOLPIDEM TARTRATE (*CRX) 5 MG TABLET 10 MG PO (21:20)
[2022-01-10 04:26] VITALS: BP 132/70; PULSE 100; RESP 18; TEMP 36.4; O2SAT 98
[2022-01-10 06:17] LABS: Eosinophils Percent Auto 0.1 % (0-4.4); Hematocrit 36.7 % (37.0-47.0); Immature Granulocyte Absolute 0.05 K/mm3 (0.00-0.031); Immature Granulocyte Percent A 0.5 % (0-0.5); Lymphocytes Absolute Auto 0.31 K/mm3 (0.9-3.2); Lymphocytes Percent Auto 2.8 % (18.3-44.2); Mean Corpuscular HGB Conc 32.7 g/dl (32-36); Mean Corpuscular Hemoglobin 32.6 pg (26-34); Mean Corpuscular Volume 99.7 fl (80-100); Mean Platelet Volume 9.1 fl (7.4-10.4); Monocytes Absolute Auto 0.2 K/mm3 (0.1-0.6); Monocytes Percent Auto 1.6 % (2.6-8.5); Neutrophils Absolute Auto 10.4 K/mm3 (1.3-6.7); Platelet Count Result 313 k/mm3 (150-375); Red Blood Count 3.68 M/mm3 (4.2-5.4); White Blood Count 10.9 K/mm3 (4.5-10.0)
[2022-01-10 06:33] LABS: Alanine Aminotransferase 36 U/L (4-35); Albumin Level 3.8 g/dL (3.5-5.1); Alkaline Phosphatase 73 U/L (38-126); Anion Gap 7 mmol/L (8-16); Aspartate Amino Transferase 50 U/L (14-36); Bilirubin,Total 0.4 mg/dL (0.2-1.3); Blood Urea Nitrogen 36 mg/dL (7-17); Calcium 9.8 mg/dL (8.4-10.2); Carbon Dioxide 21 mmol/L (22-30); Chloride 104 mmol/L (98-107); Estimated CRCL calculation 24 ml/min; Estimated Glomerular Filt Rate 32; Glucose 144 mg/dL (65-110); Magnesium 2.3 mg/dL (1.6-2.3); Potassium 3.9 mmol/L (3.4-5.0); Sodium 132 mmol/L (137-145)
[2022-01-10 08:14] VITALS: PULSE 100
[2022-01-10] MEDS: carvediloL 12.5 MG TABLET PO (08:14)
[2022-01-10] MEDS: ROSUVASTATIN 10 MG TABLET 40 MG PO (08:14)
[2022-01-10] MEDS: ESCITALOPRAM OXALATE 10 MG TABLET 20 MG PO (08:14)
[2022-01-10] MEDS: ENOXAPARIN 40 MG/0.4 ML SYRINGE SUB-Q (08:15)
[2022-01-10] MEDS: FOLIC ACID 1 MG TABLET PO (08:15)
[2022-01-10] MEDS: ASPIRIN 81 MG ENTERIC TABLET PO (08:15)
[2022-01-10 08:24] VITALS: O2SAT 96
--- NOTE | 2022-01-10 10:30 | P.DS_ITS ---
DS: Admitting Diagnosis Discharge Date 01/10/22 1030 Admitting Diagnosis Urinary obstruction/UTI DS: Discharge Diagnosis Discharge Diagnosis (1) Urinary tract infection: Code(s): N39.0 - Urinary tract infection, site not specified Status: Acute Assessment and Plan: * Patient was treated in the outpatient setting with Macrobid which did not resolve * Complaints of burning, urgency, and frequency * Continue Rocephin * Monitor output * Trend symptoms * Await cultures * Tailor to culture results * Still having some pelvic pain * Post residual void negative * Almost wonder if this is related to the plaque psoriasis and her current treatments to this (2) Hyponatremia: Code(s): E87.1 - Hypo-osmolality and hyponatremia Status: Acute Assessment and Plan: * Patient appears euvolemic * Possible SIADH as patient with lung mass. * Currently on NS, can be DC'd * Na 125, increased today 134 * Continue to trend (3) Mass of left lung: Code(s): R91.8 - Other nonspecific abnormal finding of lung field Status: Acute Assessment and Plan: * Patient needs biopsy * Follow-up in outpatient setting (4) Rheumatoid arthritis: Code(s): M06.9 - Rheumatoid arthritis, unspecified Status: Acute Assessment and Plan: * Appears to be in remission * Continue to monitor * Follow-up in outpatient setting (5) Hypertension: Code(s): I10 - Essential (primary) hypertension Status: Acute Assessment and Plan: * BP 166/74 * Continue home med: Lisinopril 40mg PO daily, Carvedilol 12.5mg pO BID, * Trend BP * Adjust therapy as indicated (6) HELGA (acute kidney injury): Code(s): N17.9 - Acute kidney failure, unspecified Status: Acute Assessment and Plan: * BUN/Cr 30/1.20, down from admission * IV fluids * Continue trend labs * Likely to be pre renal azotemia * avoid nephrotoxic medications (7) Urinary obstruction: Code(s): N13.9 - Obstructive and reflux uropathy, unspecified Status: Acute Assessment and Plan: * Post residual void ordered * Continue to trend urine DS: Summary Hospital Course Hospital Course: Patient is a 71-year-old female with a past medical history of [place], hypertension, RA who presented to the ED with complaints urgency and burning with urination. Patient has had several doses of Macrobid and ceftriaxone outpatient however is still having symptoms of urgency frequency and burning with and without urination. Patient also was complaining of what seemed to be bladder spasms. UA was collected which looked infectious however urine culture did grow nothing. CT of the abdomen and pelvis did show the patient had wall thickening or what looked to be cystitis along with hydroureteronephrosis. Patient was started on IV ciprofloxacin. White count was noted to be elevated upon arrival and is down to 10.9 today. Patient denies any chest pain, shortness of breath, nausea, vomiting, diarrhea, constipation. Abdominal pain has subsided. I did talk to Halle from Urology and read to her the CT results which she said sounds like an obstruction or neurogenic bladder. It was recommended the patient have a Wiley catheter with a leg bag and discharged home and to follow up with Urology in 1 week. Urinary catheter was placed. Patient was also anxious about staying. She does
--- NOTE | 2022-01-10 10:30 | PM.DS ---
DS: Admitting Diagnosis Discharge Date 01/10/22 1030 Admitting Diagnosis Urinary obstruction/UTI DS: Discharge Diagnosis Discharge Diagnosis (1) Urinary tract infection: Code(s): N39.0 - Urinary tract infection, site not specified Status: Acute Assessment and Plan: Patient was treated in the outpatient setting with Macrobid which did not resolve Complaints of burning, urgency, and frequency Continue Rocephin Monitor output Trend symptoms Await cultures Tailor to culture results Still having some pelvic pain Post residual void negative Almost wonder if this is related to the plaque psoriasis and her current treatments to this (2) Hyponatremia: Code(s): E87.1 - Hypo-osmolality and hyponatremia Status: Acute Assessment and Plan: Patient appears euvolemic Possible SIADH as patient with lung mass. Currently on NS, can be DC'd Na 125, increased today 134 Continue to trend (3) Mass of left lung: Code(s): R91.8 - Other nonspecific abnormal finding of lung field Status: Acute Assessment and Plan: Patient needs biopsy Follow-up in outpatient setting (4) Rheumatoid arthritis: Code(s): M06.9 - Rheumatoid arthritis, unspecified Status: Acute Assessment and Plan: Appears to be in remission Continue to monitor Follow-up in outpatient setting (5) Hypertension: Code(s): I10 - Essential (primary) hypertension Status: Acute Assessment and Plan: BP 166/74 Continue home med: Lisinopril 40mg PO daily, Carvedilol 12.5mg pO BID, Trend BP Adjust therapy as indicated (6) HELGA (acute kidney injury): Code(s): N17.9 - Acute kidney failure, unspecified Status: Acute Assessment and Plan: BUN/Cr 30/1.20, down from admission IV fluids Continue trend labs Likely to be pre renal azotemia avoid nephrotoxic medications (7) Urinary obstruction: Code(s): N13.9 - Obstructive and reflux uropathy, unspecified Status: Acute Assessment and Plan: Post residual void ordered Continue to trend urine DS: Summary Hospital Course Hospital Course: Patient is a 71-year-old female with a past medical history of [place], hypertension, RA who presented to the ED with complaints urgency and burning with urination. Patient has had several doses of Macrobid and ceftriaxone outpatient however is still having symptoms of urgency frequency and burning with and without urination. Patient also was complaining of what seemed to be bladder spasms. UA was collected which looked infectious however urine culture did grow nothing. CT of the abdomen and pelvis did show the patient had wall thickening or what looked to be cystitis along with hydroureteronephrosis. Patient was started on IV ciprofloxacin. White count was noted to be elevated upon arrival and is down to 10.9 today. Patient denies any chest pain, shortness of breath, nausea, vomiting, diarrhea, constipation. Abdominal pain has subsided. I did talk to Halle from Urology and read to her the CT results which she said sounds like an obstruction or neurogenic bladder. It was recommended the patient have a Wiley catheter with a leg bag and discharged home and to follow up with Urology in 1 week. Urinary catheter was placed. Patient was also anxious about staying. She does have a biopsy scheduled for Thursday at [facility], for the mass that was found in her lung. She also stated that she does feel that sometimes she does not fully empty and also she is concerned that she has been treated for a UTI over the last few months with no results. She did state that she is on an HMO and would need a referral. I did call her primary to see about initiation. At this time patient is stable for discharge. Status at Discharge Functional status at discharge: independent ambulation Overall status at discharge: kody
[2022-01-10] MEDS: SODIUM CHLORIDE 0.9% IV 500 ML IV CONT (11:08)
[2022-01-10 13:27] LABS: Hepatitis B Surface Antigen Negative (Negative)
[2022-01-10 13:33] LABS: HAV RESULT Negative (Negative); Hepatitis B Core IgM Result Negative (Negative)
[2022-01-10 13:44] LABS: Hepatitis C Virus Antibody Negative (Negative)
[2022-01-10 14:49] VITALS: BP 120/63; PULSE 86; RESP 20; TEMP 36.2; O2SAT 98
[2022-01-10] MEDS: TAMSULOSIN HCL 0.4 MG CAPSULE PO (14:54)
--- NOTE | 2022-01-10 15:22 | PCNFU ---
Addendum entered by Kath Castro RD, LDN 01/10/22 15:27: Wrong patient documentation. See other nutrition follow up noted. Original Note: Nutrition Follow-Up Complete: Inadequate oral intake related to hyponatremia, HELGA, UTI as evidenced by reported average intake Goal: Pt to meet 75% of estimated nutritional needs Pt is progressing towards goal. Continue with current nutrition goal. Pt current nutrition is heart healthy diet and dietary supplements Last recorded weight is 55.4 kg, stable. Recommend re-weighing prior to discharge. Bowel Motility: No new BM reported Labs Reviewed: Hct 36.7, CO2 21, Na 132, GFR 32, BUN 36, Cr 1.60, Glu 144, AST 50, ALT 36 Meds Noted: Aspirin, Coreg, Rocephin, Lovenox, Lexapro, Folic Acid, Crestor, Flomax Skin: No new skin break down. WNL Additional Notes: Current nutrition is a heart healthy diet and dietary supplements of Ensure Compact BID providing an additional 220kcal and 9g of protein to increase caloric intake. Reported intake of 50% x2, 10%, 75%, and 90%. Continue with plan of care to encourage intake of heart healthy diet and dietary supplements. Recommend increase dietary supplement from BID to TID if intake remains <50%. Agree with diet orders at this time. Will continue to follow. Will monitor labs, medication, wt, and reported intake every 5 days.
--- NOTE | 2022-01-10 15:32 | PCNFU ---
Nutrition Follow-Up Complete: Inadequate oral intake related to hyponatremia, HELGA, UTI as evidenced by reported average intake Goal: Pt to meet 75% of estimated nutritional needs Pt is slowly progressing towards goal. Continue with current nutrition goal. Pt current nutrition is heart healthy diet and dietary supplements Last recorded weight is 55.4 kg, stable. Recommend re-weighing prior to discharge. Bowel Motility: No new BM reported Labs Reviewed: Hct 36.7, CO2 21, Na 132, GFR 32, BUN 36, Cr 1.60, Glu 144, AST 50, ALT 36 Meds Noted: Aspirin, Coreg, Rocephin, Lovenox, Lexapro, Folic Acid, Crestor, Flomax Skin: No new skin break down. WNL Additional Notes: Current nutrition is a heart healthy diet and dietary supplements of Ensure Compact TID providing an additional 220kcal and 9g of protein to increase caloric intake. Reported intake of 20%, 10%, 30%, and 100%. Continue with plan of care to encourage intake of heart healthy diet and dietary supplements. Agree with diet orders at this time. Will continue to follow. Will monitor labs, medication, wt, and reported intake every 5 days.
== END 2022-01-10 15:45 | disposition home or self-care (01) ==
LOC: ANHED 17:43 → ANH3MED 20:51
PROVIDERS: Family Medicine; Internal Medicine; Admitting Provider Family Medicine; Emergency Provider Nurse Practitioner Family; PCP Student in an Organized Health Care Education/Training Program; Visit Provider Nurse Practitioner
DX: N39.0 Urinary tract infection, site not specified (principal); N17.9 Acute kidney failure, unspecified; E87.1 Hypo-osmolality and hyponatremia; R91.8 Other nonspecific abnormal finding of lung field; N13.9 Obstructive and reflux uropathy, unspecified; I10 Essential (primary) hypertension; I25.2 Old myocardial infarction; M06.9 Rheumatoid arthritis, unspecified; L40.50 Arthropathic psoriasis, unspecified; H35.30 Unspecified macular degeneration; Z87.891 Personal history of nicotine dependence; Z79.82 Long term (current) use of aspirin
CPT/HCPCS: 36415; 74177; 80048; 80053; 80074; 81001; 83605; 83735; 85025; 87086; 96365; 96367; 96372; 96375; 99285; A9270; G0378; J0360; J0696; J0744; J1650; J7030; J7040; Q9967

== ENCOUNTER 2022-01-30 01:25 | Day surgery (SDC) | payer MEDICARE, SELFPAY ==
--- NOTE | 2022-01-29 11:07 | PC.NURSE ---
Report to the Outpatient Waiting Room, entrance under the green pavilion located off [facility], at time __1030 on date _01/30/22 . OR Time: __1230 . - You and your visitor will be asked a series of questions to screen for COVID 19 for your protection. - A mask is required within the hospital. Preoperative COVID Testing Requirements: No COVID Test needed if: (proof is required; if not received patient will have Rapid Test prior to entry) - Patient has received COVID Vaccine at least 14 days prior to procedure date or - Patient has positive COVID test result within last 90 days of surgery date. COVID Test needed if above criteria is not met If not COVID vaccinated a COVID test must be conducted within 72 hours of surgery and patient is asked to isolate self from time of testing until procedure. You will go to the [facility] for your COVID testing. The [facility] is located at the corner of [address] [facility]. You will only be called if COVID results are positive and your surgeon may reschedule your elective surgery date. Patients may have clear liquids (water, carbonated beverages, clear teas, apple juice) until 3 hours prior to surgery with a maximum of 20 ounces. - No food from midnight until time of surgery - Infants may have breast milk until 4 hours before surgery, formula 6 hours prior to surgery. - Children will be allowed to drink immediately following surgery. If applicable, please bring a bottle or sippy cup to assist with drinking. Juice, water, soda, and popsicles are readily available. For infants on formula, please bring formula the day of surgery. Pacifiers are allowed. Take the following medications with a SIP of water the morning of surgery: ALBUTEROL IF NEEDED,ALPRAZOLAM,CARVEDILOL,CIPRO,ESCITALOPRAM Medications to discontinue per physician ____PT STATES STOPPED ASA 4 DAYS AGO Date to take last dose Please no make-up, nail prydeinig, hairspray, perfume, deodorant, or body powder the day of surgery. No jewelry (including any body piercings) or valuables the day of surgery, leave them at home. Please take a shower or bath the night before, or the morning of, surgery with an antibacterial soap. Wear comfortable, loose fitting clothing. Children are encouraged to wear pajamas. - Jewelry must be removed prior to entering the operating room. Rings and piercings that are not removed may be cut off. - The hospital will not accept responsibility for valuables. - Please leave all valuables, including medications, at home the day of surgery. If you are going home after surgery, a licensed truck driver rubbish collector must drive you home. - NO public transportation without another adult. - We recommend that an adult stay with you for 24 hours following discharge. - We also recommend that you do not drive, make important decision, drink alcoholic beverages, or take any drugs that were not prescribed by your health care provider for at least 24 hours after your discharge time. For Pediatric surgeries, we recommend two adults accompany the child home (only one inside the building at this time). One visitor will be allowed to accompany the patient into the hospital. Patients visitor will be instructed to remain with patient at all times or leave the building. We will allow the visitor to come back to the postoperative area when patient is ready. Follow any additional instructions given to you from your surgeon. Telephone instructions given to PATIENT____and asked if any additional questions and then verbalized understanding. Patient advised to call surgeon office or pre surgery nurse liaison [phone] if any additional questions.
[2022-01-29 11:09] VITALS: BMI 22.1
[2022-01-30] VITALS (10 sets, daily range): BP systolic 135–194; BP diastolic 67–97; PULSE 55–87; RESP 12–16; TEMP 36.1–37.1; O2SAT 92–100
--- NOTE | 2022-01-30 07:00 | WPDHPUPDATE1 ---
History and Physical Update Update Date/Time: 01/30/22 07:00 History and Physical has been reviewed, including an updated exam of the patient. There are NO changes in the patient's condition. Risks, benefits, and alternatives have been discussed and questions answered. Patient agrees to proceed with procedure.
[2022-01-30] MEDS: LACTATED RINGERS 1,000 ML 30 ML IV CONT (11:20)
--- NOTE | 2022-01-30 11:43 | WPDANESEPPF ---
Anes - Initial Pre Proc Eval Procedure: Operation Date: 01/30/22 12:30 Proposed Procedures p Cystoscopy, Suprapubic Tube Placement - Dennis Vega MD Date/Time: 01/30/22 11:43 Surgeon: Dennis Vega MD Pre Op Diagnosis: neurogenic bladder,bladder spasms, urine retention Patient Data Age: 72 Gender: F Height: 1.6 m Weight: 57.2 kg Last Vital Signs Temp 37.1 C 01/30/22 11:26 Pulse 83 01/30/22 11:26 Resp 16 01/30/22 11:26 BP 166/92 H 01/30/22 11:26 Pulse Ox 100 01/30/22 11:26 Allergies Allergy/AdvReac Type Severity Reaction Status Date / Time Sulfa (Sulfonamide AdvReac Unknown Nausea Verified 01/30/22 11:13 Antibiotics) Home Medications Medication Instructions Recorded Confirmed Type apremilast 30 mg tablet 30 mg PO BID 07/10/20 01/30/22 History aspirin 81 mg tablet,delayed 81 mg PO DAILY 07/10/20 01/30/22 History release escitalopram oxalate 20 mg tablet 20 mg PO DAILY 07/10/20 01/30/22 History folic acid 1 mg tablet 1 mg PO DAILY 07/10/20 01/30/22 History lisinopril 40 mg tablet 40 mg PO DAILY 07/10/20 01/30/22 History rosuvastatin 40 mg tablet 40 mg PO DAILY 07/10/20 01/30/22 History tofacitinib 11 mg tablet,extended 11 mg PO DAILY 07/10/20 01/30/22 History release 24 hr tramadol 50 mg tablet 50 mg PO Q6H PRN 07/10/20 01/30/22 History zolpidem 10 mg tablet 10 mg PO HS 07/10/20 01/30/22 History alprazolam 0.25 mg PO TID PRN 05/28/21 01/30/22 History carvedilol 12.5 mg PO BID 05/28/21 01/30/22 History albuterol sulfate 1 puff INHALATION PRN PRN 01/29/22 01/30/22 History ciprofloxacin HCl 500 mg PO BID 01/29/22 01/30/22 History methotrexate sodium 12.5 mg PO WEEKLY 01/29/22 01/30/22 History Patient hx anesthesia problems: none Family hx anesthesia problems: none Results Review: All pre-operative results and documents have been reviewed as part of the pre-operative evaluation. [facility] Past Medical History Medical History Heart attack Hypertension Macular degeneration Psoriatic arthritis Rheumatoid arthritis Surgical History Surgical History History of arthroscopic knee surgery History of carpal tunnel release History of hysterectomy Family History Family History Father Family history of premature coronary heart disease Family history of coronary artery disease Mother Hypertension Family history of elevated blood lipids Sibling Hypertension Social History Social History Smoking packs per day: 0.5 Smoking cigarettes per day: 10.0 Years smoked: 20 Smoking pack-years: 10.00 Smoking status: Former smoker Tobacco type: cigarettes Second hand tobacco smoke exposure: No Smoking end date: 10/26/11 Additional smoking assessment comments: 20 years 1/2-1PPD Alcohol intake: never Substance use: never Substance use type: does not use Living arrangements: with family Sexual Orientation (if Verbalized by the Patient): Straight or Heterosexual Spiritual care concerns: No Anes - Eval Final PreProcedure Day of Procedure 01/30/22 11:43 Patient weight: normal Heart: regular rate and rhythm Lungs: clear to auscultation Airway: Mallampati scale class II Neurological: alert and oriented Last oral intake: >/= 8 hours ASA classification: III Emergent: no Anesthetic plan: proceed Anesthesia type and monitoring: general LMA and standard monitoring Results Review: All pre-operative results and documents have been reviewed as part of the pre-operative evaluation. Informed Consent: The patient's anesthetic plan and its attendant risks and benefits were discussed with the patient/family/POA. Questions were solicited and answers provided to the satisfaction of the patient/family/POA.
[2022-01-30] MEDS: ceFAZolin 2 GM/D5W 50 ML 2 GM/50 ML BAG IVPB (11:51)
--- NOTE | 2022-01-30 12:28 | W.PM.PROC2 ---
Procedure Note - Detailed Date of Procedure 01/30/22 Pre-op Diagnosis Neurogenic bladder, urinary retention Post-op Diagnosis Same Procedure Performed cystoscopy, placement suprapubic catheter Surgeon Dennis Vega MD Anesthesia General Description of Procedure Patient is brought to the operative suite where he has prepped and draped in routine sterile fashion while in a dorsal lithotomy position. Cystoscopy is undertaken with a 21 F rigid cystoscope. He has no urethral strictures with moderate lateral lobe hyperplasia of the prostate. Bladder mucosa is normal with only minimal hyperemia in the posterior wall consistent with catheter cystitis. There is no intravesical foreign body or neoplasm. I filled his bladder with saline and placed a spinal needle through the dome of the bladder 1035 in glidewire was advanced through that and grasped with the cystoscope. I dilated the suprapubic tract with Amplatz dilators to from 8 F to 22 F. I then placed an 1 F Councill tip catheter through the dome. The suprapubic catheter secured with a 3 O nylon. Scopes wires removed. Blood loss was approximately 5 cc. Estimated Blood Loss 5 Drains Yes Packing No Pathology None sent Complications No immediate complications Condition Stable Disposition PACU
[2022-01-30] MEDS: hydrALAZINE HCL 20 MG/ML VIAL 10 MG IV PUSH (12:57)
[2022-01-30] MEDS: fentaNYL CITRATE INJ (*CRX) 100 MCG/2 ML VIAL 25 MCG IV PUSH ×4 (13:04→13:29)
--- NOTE | 2022-01-30 15:48 | SUR.PHASEII ---
1525 removed lg lau bag and attached leg bag. lg bag sent with patient for night time use
== END 2022-01-30 15:49 | disposition home or self-care (01) ==
PROVIDERS: PCP Student in an Organized Health Care Education/Training Program; Visit Provider Urology
PROC: 0T9B30Z Drainage of Bladder with Drainage Device, Percutaneous Approach (ICD-10-PCS; CPT 51102; principal; 2022-01-30 12:30)
DX: N31.9 Neuromuscular dysfunction of bladder, unspecified (principal); R33.9 Retention of urine, unspecified; N32.89 Other specified disorders of bladder; I10 Essential (primary) hypertension; E78.00 Pure hypercholesterolemia, unspecified; I25.2 Old myocardial infarction; M06.9 Rheumatoid arthritis, unspecified; L40.50 Arthropathic psoriasis, unspecified; H35.30 Unspecified macular degeneration; Z79.82 Long term (current) use of aspirin; Z79.51 Long term (current) use of inhaled steroids; Z87.891 Personal history of nicotine dependence
CPT/HCPCS: 51040; C1726; C1769; J0360; J0690; J1100; J2405; J2704; J3010; J7120

== ENCOUNTER 2022-02-09 11:37 | Emergency (ER) | payer MEDICARE, SELFPAY ==
--- NOTE | ~2022-02-09 | XR_ITS ---
EXAMINATION: XR chest 2V DATE: 02/09/2022 12:04 INDICATION: Weakness. TECHNIQUE: Frontal and lateral views of the chest were obtained. COMPARISON: Chest 2 views 11/13/2021, FINDINGS: There is a nodule in left midlung zone. There are lucencies in the upper lungs, consistent with emphysema. No pleural effusion or pneumothorax. The heart size is normal. IMPRESSION: 1. Nodule in left midlung zone suspicious for primary bronchogenic carcinoma. Noncontrast chest CT is recommended. I called this result to Dr. Manning. 2. Emphysema. Reviewed, dictated and finalized at location A. IMPRESSION: 1. Nodule in left midlung zone suspicious for primary bronchogenic carcinoma. N oncontrast chest CT is recommended. I called this result to Dr. Manning. 2. Emphysema.
[2022-02-09 11:40] VITALS: BP 190/89; PULSE 77; RESP 15; TEMP 36.5; O2SAT 100
--- NOTE | 2022-02-09 11:53 | ECG_ITS ---
Measurements Intervals [place] Rate: 69 P: 2 WV: 183 QRS: 62 QRSD: 101 T: 50 QT: 393 QTc: 423 Interpretive Statements SINUS RHYTHM NONSPECIFIC ST ABNORMALITY ANTEROLATERAL LEADS BORDERLINE ECG COMPARED TO ECG 05/20/2021 16:15:12 NO SIGNIFICANT CHANGE Electronically Signed On 02-10-2022 11:05:25 CDT by Faisal Ochoa M.D.
[2022-02-09 12:26] VITALS: PULSE 71
[2022-02-09 12:29] LABS: Basophils Absolute Auto 0.1 K/mm3 (0.0-0.1); Basophils Percent Auto 0.4 % (0.2-1.2); Eosinophils Absolute Auto 0.2 K/mm3 (0-0.3); Eosinophils Percent Auto 1.3 % (0-4.4); Hematocrit 36.6 % (37.0-47.0); Hemoglobin 11.5 g/dL (12.0-15.0); Immature Granulocyte Absolute 0.26 K/mm3 (0.00-0.031); Immature Granulocyte Percent A 2.3 % (0-0.5); Lymphocytes Absolute Auto 1.65 K/mm3 (0.9-3.2); Lymphocytes Percent Auto 14.5 % (18.3-44.2); Mean Corpuscular HGB Conc 31.4 g/dl (32-36); Mean Corpuscular Hemoglobin 32.8 pg (26-34); Mean Corpuscular Volume 104.3 fl (80-100); Monocytes Absolute Auto 0.9 K/mm3 (0.1-0.6); Monocytes Percent Auto 7.9 % (2.6-8.5); Neutrophils Absolute Auto 8.4 K/mm3 (1.3-6.7); Neutrophils Percent Auto 73.6 % (45.5-73.1); Platelet Count Result 342 k/mm3 (150-375); Red Blood Count 3.51 M/mm3 (4.2-5.4); Red Cell Distribution Width 17.2 % (11.5-14.5); White Blood Count 11.4 K/mm3 (4.5-10.0)
--- NOTE | 2022-02-09 12:36 | ED.WEAKNESS ---
HPI - Weakness General Chief complaint: Weakness Stated complaint: weakness Time Seen by Provider: 02/09/22 12:19 Source: patient, family and RN notes reviewed Mode of arrival: ambulatory Limitations: no limitations History of Present Illness HPI Narrative: Patient 72 years old white female presented to the ED not feeling well. Feels like something wrong with her. Patient is a status post suprapubic catheter placement for the first time 9 days ago, currently on Cipro 500 mg twice daily. History of lung mass discovered 2 months ago with regular checkup chest x-ray, scheduled for lung biopsy at [facility] in 2 days. Patient feels stressed and anxious, also have history of chronic high blood pressure which is resistant to medications. Patient denies any chest pain, shortness of breath, headache, nausea, vomiting, back pain, suicidal or homicidal ideation. Currently patient on alprazolam 0.25 mg 3 times daily as needed. Patient did not take it for a while. Related Data Home Medications Medication Instructions Recorded Confirmed apremilast 30 mg tablet 30 mg PO BID 07/10/20 01/30/22 aspirin 81 mg tablet,delayed 81 mg PO DAILY 07/10/20 01/30/22 release escitalopram oxalate 20 mg tablet 20 mg PO DAILY 07/10/20 01/30/22 folic acid 1 mg tablet 1 mg PO DAILY 07/10/20 01/30/22 lisinopril 40 mg tablet 40 mg PO DAILY 07/10/20 01/30/22 rosuvastatin 40 mg tablet 40 mg PO DAILY 07/10/20 01/30/22 tofacitinib 11 mg tablet,extended 11 mg PO DAILY 07/10/20 01/30/22 release 24 hr tramadol 50 mg tablet 50 mg PO Q6H PRN 07/10/20 01/30/22 zolpidem 10 mg tablet 10 mg PO HS 07/10/20 01/30/22 alprazolam 0.25 mg PO TID PRN 05/28/21 01/30/22 carvedilol 12.5 mg PO BID 05/28/21 01/30/22 albuterol sulfate 1 puff INHALATION PRN PRN 01/29/22 01/30/22 ciprofloxacin HCl 500 mg PO BID 01/29/22 01/30/22 methotrexate sodium 12.5 mg PO WEEKLY 01/29/22 01/30/22 Allergies Allergy/AdvReac Type Severity Reaction Status Date / Time Sulfa (Sulfonamide AdvReac Unknown Nausea Verified 01/30/22 11:13 Antibiotics) Review of Systems Review of Systems: CONSTITUTIONAL: Denies fever, chills, or sweats. EYES: Denies visual changes, redness, or discharge. ENT: Denies rhinorrhea, congestion, sore throat, or otalgia. CARDIOVASCULAR: Denies chest pain, palpitations, or edema. RESPIRATORY: Denies cough or dyspnea. GASTROINTESTINAL: Denies abdominal pain, nausea, vomiting, or diarrhea. GENITOURINARY: Denies dysuria or hematuria. SKIN: Denies rash or itching. MUSCULOSKELETAL: Denies back pain, joint pain, or myalgia. NEUROLOGIC: Denies headache, numbness, or weakness. PSYCHIATRIC: Denies anxiety or depression. [facility] Past Medical History Medical History Heart attack Hypertension Macular degeneration Psoriatic arthritis Rheumatoid arthritis Surgical History Surgical History History of arthroscopic knee surgery History of carpal tunnel release History of hysterectomy Family History Family History Father Family history of premature coronary heart disease Family history of coronary artery disease Mother Hypertension Family history of elevated blood lipids Sibling Hypertension Social History Social History Smoking packs per day: 0.5 Smoking cigarettes per day: 10.0 Years smoked: 20 Smoking pack-years: 10.00 Smoking status: Former smoker Tobacco type: cigarettes Second hand tobacco smoke exposure: No Smoking end date: 10/26/11 Additional smoking assessment comments: 20 years 1/2-1PPD Alcohol intake: never Substance use: never Substance use type: does not use Gender identity (if verbalized by the patient): Female Sexual Orientation (if Verbalized by the Patient): Straight or Heterosexual Spiritual care concerns: No
[2022-02-09 12:39] LABS: Alanine Aminotransferase 13 U/L (4-35); Albumin Level 4.1 g/dL (3.5-5.1); Alkaline Phosphatase 59 U/L (38-126); Anion Gap 5 mmol/L (8-16); Aspartate Amino Transferase 31 U/L (14-36); Bilirubin,Total 0.4 mg/dL (0.2-1.3); Blood Urea Nitrogen 11 mg/dL (7-17); Calcium 8.7 mg/dL (8.4-10.2); Carbon Dioxide 25 mmol/L (22-30); Chloride 111 mmol/L (98-107); Estimated CRCL calculation 55 ml/min; Estimated Glomerular Filt Rate > 60; Glucose 129 mg/dL (65-110); Potassium 3.4 mmol/L (3.4-5.0); Sodium 141 mmol/L (137-145)
[2022-02-09] MEDS: LORazepam INJ (*CRX) 2 MG/ML VIAL 1 MG IV PUSH (13:13)
[2022-02-09 13:19] VITALS: BP 156/96; PULSE 70; RESP 16; O2SAT 100
[2022-02-09 13:46] VITALS: BP 175/89; PULSE 68; RESP 18; O2SAT 97
== END 2022-02-09 13:45 | disposition home or self-care (01) ==
PROVIDERS: Emergency Provider Emergency Medicine; PCP Student in an Organized Health Care Education/Training Program
DX: F32.A Depression, unspecified (principal); R91.8 Other nonspecific abnormal finding of lung field; I10 Essential (primary) hypertension; I25.2 Old myocardial infarction; H35.30 Unspecified macular degeneration; L40.50 Arthropathic psoriasis, unspecified; M06.9 Rheumatoid arthritis, unspecified; Z79.82 Long term (current) use of aspirin; Z87.891 Personal history of nicotine dependence; R94.31 Abnormal electrocardiogram [ECG] [EKG]; J43.9 Emphysema, unspecified
CPT/HCPCS: 36415; 71046; 80053; 85025; 93005; 96374; 99284; J2060

== ENCOUNTER 2022-03-14 13:41 | Outpatient (CLI) | payer MEDICARE, SELFPAY ==
--- NOTE | ~2022-03-14 | DEXA_ITS ---
Bone Density Report Name: ZANDRA DANIELS Age: 72 Sex: Female Ethnicity: White Date of : 1950 Indication: osteopenia; height loss; cancer; hysterectomy; postmenopausal Referring Provider: TALIA, KEITH Study: Bone densitometry was performed. Exam Date: March 14, 2022 Accession number: [id number] Bone Density: Region BMD T-score Z-score Classification AP Spine(L1, L2, L3) 0.852 -1.5 0.6 Osteopenia Femoral Neck (Left) 0.492 -3.2 -1.4 Osteoporosis Total Hip (Left) 0.625 -2.6 -1.0 Osteoporosis World Health Organization criteria for BMD impression classify patients as: Normal (T-score at or above -1.0), Osteopenia (T-score between -1.0 and -2.5), or Osteoporosis (T-score at or below -2.5). 10-year Fracture Risk: FRAX not reported because: Some T-score for Spine Total or Hip Total or Femoral Neck at or below -2.5 Previous Exams: Region Exam Age BMD T-score BMD Change BMD Change Date g/cm2 vs Baseline vs Previous AP Spine (L1-L3) 03/14/2022 72 0.852 -1.5 -0.020 (-2.3%) -0.020 (-2.3%) 01/20/2019 69 0.872 -1.3 Total Hip(Left) 03/14/2022 72 0.625 -2.6 -0.066 (-9.5%) -0.066 (-9.5%) 01/20/2019 69 0.691 -2.1 *Denotes significance at 95% confidence level, LSC for AP Spine = 0.022 g/cm2, LSC for Total Hip = 0.027 g/cm2 Clinical Information Provided by Patient: Has used the following medications: Vitamin D, Calcium Has the following medical conditions: Cancer, Hysterectomy Patient maximum height was 64 Menopause Age: 39 No regular weight bearing exercise Drinks caffeinated beverages Onset of menses at age 14 Number of children 2 Impression: The patient has osteoporosis, based on the Left Femoral Neck T-score. The BMD for the Total Hip(Left) decreased, changing by -9.5% since the last DXA exam. Discussion: INCREASED RISK OF FRACTURE. BONE DENSITY IS UNDESIRABLY LOW AT ONE OR MORE SKELETAL SITES, CONSISTENT WITH POSTMENOPAUSAL OSTEOPOROSIS. This patient's lowest T-score meets the World Health Organization's (WHO) criteria for osteoporosis at one or more sites (T-score -2.5 or below). In untreated patients, the risk of osteoporotic fracture increases approximately two-fold for each 1.0 SD decrease in T-score. Low bone density is not the only risk factor for fracture; also consider factors such as patient's age, frailty or poor health, risk of falling, risk of injury, previous osteoporotic fracture, family history of osteoporosis, cigarette smoking, low body weight, etc. Not everyone with low bone mineral density has osteoporosis;
--- NOTE | ~2022-03-14 | MM_ITS ---
EXAMINATION: MM screening [facility] BI w mona HISTORY: Screening mammogram TECHNIQUE: Craniocaudal and mediolateral oblique 3-D tomosynthesis images were obtained and synthetic 2-D images were generated. CAD analysis was submitted and interpreted. COMPARISON: 07/05/2020, 01/19/2019, 01/12/2018 BREAST PARENCHYMAL COMPOSITION: The breasts are heterogeneously dense, which may obscure small masses . FINDINGS: There is no suspicious mass, calcification, or architectural distortion to suggest malignan cy in either breast. There has been no suspicious interval change. IMPRESSION: 1. No mammographic evidence of malignancy. 2. Recommend routine screening mammography in one year. BI-RADS Category 1: Negative Reviewed, dictated and finalized at location A.
== END 2022-03-14 13:42 | disposition home or self-care (01) ==
LOC: ANHIMG 13:43
PROVIDERS: PCP Student in an Organized Health Care Education/Training Program; Visit Provider Student in an Organized Health Care Education/Training Program
DX: Z12.31 Encounter for screening mammogram for malignant neoplasm of breast (principal); M81.0 Age-related osteoporosis without current pathological fracture; M85.88 Other specified disorders of bone density and structure, other site
CPT/HCPCS: 77063; 77067; 77080

== ENCOUNTER 2022-06-19 12:04 | Outpatient (CLI) | payer MEDICARE, SELFPAY ==
--- NOTE | ~2022-06-19 | PE_ITS ---
EXAMINATION: PET skull to mid thigh DATE: 06/19/2022 14:06 INDICATION: Malignant neoplasm of the left lower lobe TECHNIQUE: Blood glucose level was 104 mg/dL. 10.7 mCi of 18-fluorodeoxyglucose (18-FDG) was administ ered i.v. Low dose computed tomography (CT) images were acquired from the base of the brain to the pr oximal thighs for attenuation correction and anatomic localization. Positron emission tomography (PET ) images were acquired in the same distribution beginning 60 minutes after injection. The dose-length product (DLP) was 311.61 mGy-cm. COMPARISON: CT, 03/18/2022 FINDINGS: Head/neck: No abnormal FDG uptake is identified. FDG activity in the oral cavity without suspicious C T correlate is likely physiologic. Chest: There is a 2.8 x 2.5 cm nodule in the superior segment of the left lower lobe with abnormal FD G uptake and slight increase in size. SUV max is 8.4. There is a new 9 mm x 7 mm nodule of the left l malika apex with mild FDG uptake and an SUV max of 2.4. A stable 4 mm nodule is seen in the left upper l obe without associated FDG uptake although absence of uptake could relate to small size. A subpleural groundglass nodule in the posterior aspect of the left lower lobe on the previous examination has ne cande completely resolved, consistent with infection/inflammation. No pathologically enlarged thoracic lymph nodes are identified. The heart size is normal. Calcified coronary artery atherosclerosis is n oted. Abdomen/pelvis/proximal thighs: Physiologic FDG activity is present in the bowel and urinary tract. N o abnormal FDG uptake is identified. There is a suprapubic catheter in the urinary bladder. The liver , spleen, pancreas, gallbladder, and adrenal glands are normal. An extrarenal pelvis is noted in the right kidney. Left kidney is unremarkable. No pathologically enlarged abdominal or pelvic lymph nodes are identified. There is no free intraperitoneal gas or evidence of bowel obstruction. There is circ umferential wall thickening of the urinary bladder which could reflect chronic cystitis or chronic ou tlet obstruction. Musculoskeletal: No abnormal FDG uptake is identified. There is severe cervical and lumbar spondylosi s. IMPRESSION: 1. Nodule in the superior segment of the left lower lobe with abnormal FDG uptake and slight increase in size since the comparison examination, consistent with primary bronchogenic carcinoma. 2. New nodule of the left lung apex with abnormal FDG uptake, concerning for primary bronchogenic car cinoma. 3. 4 mm left upper lobe nodule without definite FDG uptake, indeterminate. Reviewed, dictated and finalized at location B. IMPRESSION: 1. Nodule in the superior segment of the left lower lobe with abnormal FDG upta ke and slight increase in size since the comparison examination, consistent wit h primary bronchogenic carcinoma. 2. New nodule of the left lung apex with abnormal FDG uptake, concerning for pr imary bronchogenic carcinoma. 3. 4 mm left upper lobe nodule without definite FDG uptake, indeterminate.
[2022-06-19 12:31] LABS: Glucose Point of Care 104 mg/dl (65-105)
== END 2022-06-19 12:05 | disposition home or self-care (01) ==
PROVIDERS: PCP Student in an Organized Health Care Education/Training Program; Visit Provider Radiology Radiation Oncology
DX: C34.32 Malignant neoplasm of lower lobe, left bronchus or lung (principal)
CPT/HCPCS: 78815; A9552

== ENCOUNTER 2022-10-31 14:05 | Outpatient (CLI) | payer MEDICARE, SELFPAY ==
--- NOTE | ~2022-10-31 | CT_ITS ---
EXAMINATION: CT diagnostic chest w con DATE: 10/31/2022 14:39 INDICATION: Malignant neoplasm of the lower lobe. TECHNIQUE: Computed tomography (CT) of the chest was performed without intravenous contrast. The dose -length product was 146.16 mGy-cm. Automated exposure control and iterative reconstruction technique were employed. COMPARISON: Pet/CT scan dated 06/19/[address] dated 04/04/2016 FINDINGS: No thoracic lymphadenopathy. Heart size is normal. No significant pleural or pericardial ef fusion. There is atherosclerosis of the aorta without aneurysm. No focal lytic or blastic lesions. Th ere is emphysema. Decreased size of left lower lobe nodule in the superior segment measuring 1.6 x 1. 4 cm compared with 2.8 x 2.3 cm on prior examination. There is decreased size of left apical nodule m easuring 7 x 4 mm on the current examination, image 20. There is a new 4 mm left upper lobe nodule, i mage 32. There is a new 4 mm nodule right upper lobe, image 40. There is a new 3-4 mm right upper lob e nodule, image 28. There are new nodules in the right upper lobe medially, image 26 and 28. There ar e new right middle and lower lobe nodules measuring 3 mm or less. There is a new 4 mm nodule in the s uperior segment right lower lobe, image 56. There are a few new nodules in the left upper lobe, measu ring 4-5 mm. No pneumothorax. No focal lytic or blastic lesions. IMPRESSION: 1. Multiple new or enlarging bilateral pulmonary nodules measuring 5 mm or less, suspicious for metas tatic disease. 2: Dominant mass superior segment of the left lower lobe has decreased in size compared with prior s tudy, consistent with interval response. 3: Decreased size of left apical nodule measuring 7 x 4 mm on current examination. Reviewed, dictated and finalized at location A. PROOF DOOR ASSEMBLER IMPRESSION: 1. Multiple new or enlarging bilateral pulmonary nodules measuring 5 mm or less , suspicious for metastatic disease. 2: Dominant mass superior segment of the left lower lobe has decreased in size compared with prior study, consistent with interval response. 3: Decreased size of left apical nodule measuring 7 x 4 mm on current examinati on.
[2022-10-31 14:33] LABS: Estimated Glomerular Filt Rate > 60
== END 2022-10-31 14:06 | disposition home or self-care (01) ==
PROVIDERS: PCP Student in an Organized Health Care Education/Training Program; Visit Provider Radiology Radiation Oncology
DX: C34.32 Malignant neoplasm of lower lobe, left bronchus or lung (principal); R91.8 Other nonspecific abnormal finding of lung field
CPT/HCPCS: 71260; Q9967

== ENCOUNTER 2022-12-12 09:38 | Outpatient (CLI) | payer MEDICARE, SELFPAY ==
--- NOTE | ~2022-12-12 | CT_ITS ---
EXAMINATION: CT diagnostic chest w con DATE: 12/12/2022 10:16 INDICATION: Malignant neoplasm of the left lower lobe. TECHNIQUE: Computed tomography (CT) of the chest was performed without intravenous contrast. The dose -length product was 142.35 mGy-cm. Automated exposure control and iterative reconstruction technique were employed. COMPARISON: Comparison to multiple prior studies sequentially, with oldest reviewed study dated 06/19. FINDINGS: There is moderate emphysema. Mass in the superior segment left lower lobe is unchanged from prior examination measuring 1.3 x 1.4 cm. There are developing right upper lobe nodules, image 36 me asuring 5 mm respectively. There Order developing nodules in the right upper lobe, image 40 measuring 3 mm. There are 2 adjacent groun dglass nodules in the right lower lobe which appear new measuring 3 mm. There is a new 3 mm left lowe r lobe nodule, image 77. There are increased number of satellite nodules adjacent to the dominant mas s in the superior segment of the left lower lobe. No significant pleural effusion or pneumothorax. No mediastinal or hilar lymphadenopathy. Moderate diffuse atherosclerosis of the aorta there is ectasia of the descending thoracic and upper abdominal aorta. IMPRESSION: 1. No significant change to primary mass in the superior segment of the left lower lobe, consistent w ith treated malignancy. 2: Increased number and size of bilateral pulmonary nodules, suspicious for metastatic disease. Cons ider correlation with pet/CT scan. Reviewed, dictated and finalized at location A. MS ACCOUNT SPECIALIST IMPRESSION: 1. No significant change to primary mass in the superior segment of the left lo wer lobe, consistent with treated malignancy. 2: Increased number and size of bilateral pulmonary nodules, suspicious for me tastatic disease. Consider correlation with pet/CT scan.
[2022-12-12 10:12] LABS: Estimated Glomerular Filt Rate > 60
== END 2022-12-12 09:39 | disposition home or self-care (01) ==
PROVIDERS: PCP Student in an Organized Health Care Education/Training Program; Visit Provider Radiology Radiation Oncology
DX: C34.32 Malignant neoplasm of lower lobe, left bronchus or lung (principal); R91.8 Other nonspecific abnormal finding of lung field
CPT/HCPCS: 71260; Q9967

== ENCOUNTER 2022-12-25 15:55 | Outpatient (CLI) | payer MEDICARE, SELFPAY ==
--- NOTE | ~2022-12-25 | MR_ITS ---
EXAMINATION: MR brain/brain stem wo/w con DATE: 12/25/2022 16:45 INDICATION: Recurrent metastatic lung cancer. TECHNIQUE: Magnetic resonance imaging (MRI) of the brain and brainstem was performed without and with 10 mL MultiHance intravenous contrast. COMPARISON: None. FINDINGS: There are scattered areas of nonspecific increased T2-weighted signal intensity in the cere bral white matter and marcus. There are small old infarcts in the bilateral basal ganglia and left fron luci lobe. There is no intracranial hemorrhage, acute infarction, or abnormal intracranial mass lesion . The ventricles are normal in size. The paranasal sinuses are clear. There are likely changes of ocu lar lens replacement surgeries. The mastoid air cells are normal. IMPRESSION: 1. No evidence of metastatic disease. 2. 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 3. Moderate nonspecific cerebral white matter disease and pontine disease, which likely represents ch ronic small vessel ischemic disease. Reviewed, dictated and finalized at location A. IAL LOAN OFFICER IMPRESSION: 1. No evidence of metastatic disease. 2. 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 3. Moderate nonspecific cerebral white matter disease and pontine disease, whic h likely represents chronic small vessel ischemic disease.
== END 2022-12-25 15:56 | disposition home or self-care (01) ==
PROVIDERS: PCP Student in an Organized Health Care Education/Training Program; Visit Provider Radiology Radiation Oncology
DX: C34.32 Malignant neoplasm of lower lobe, left bronchus or lung (principal); R93.0 Abnormal findings on diagnostic imaging of skull and head, not elsewhere classified
CPT/HCPCS: 70553; A9577

== ENCOUNTER 2023-01-01 07:41 | Outpatient (CLI) | payer MEDICARE, SELFPAY ==
--- NOTE | ~2023-01-01 | PE_ITS ---
EXAMINATION: PET skull to mid thigh DATE: 01/02/2023 09:06 INDICATION: Malignant neoplasm of lower lobe, left bronchus or lung. TECHNIQUE: Blood glucose level was 98 mg/dL. 10.414 mCi of 18-fluorodeoxyglucose (18-FDG) was adminis tered i.v. Low dose computed tomography (CT) images were acquired from the base of the brain to the p roximal thighs for attenuation correction and anatomic localization. Automated exposure control was e mployed. Dose-length product (DLP) was 481 mGy-cm. Positron emission tomography (PET) images were acq uired in the same distribution. COMPARISON: PET/CT 06/19/2022, chest CT 12/12/2022, 10/31/2022 FINDINGS: Head/neck: There are no pathologically enlarged lymph nodes. There is a 6 mm nodule in right thyroid lobe without increased activity, likely not clinically significant. Chest: There is mild emphysema. There is a 1.8 x 1.6 cm nodule in superior segment left lower lobe wi th nearby groundglass and airspace opacities with maximum SUV of 2.8, consistent with primary broncho genic carcinoma and changes of radiation therapy. A calcified right lung nodule and calcified right h ilar lymph nodes are consistent with old granulomatous disease. There are greater than 20 scattered n odules in the lungs measuring up to 5 mm there are too small for PET evaluation. There is a trace lef t pleural effusion. The heart size is normal. There are coronary artery calcifications. No pericardia l effusion. Abdomen/pelvis/proximal thighs: The liver is normal. Calcifications in the spleen are consistent with old granulomatous disease. The gallbladder, pancreas, adrenal glands, and left kidney are normal. Th ere is a 1.8 cm cyst in right kidney. There is calcified atherosclerosis of the aorta and many of the other arteries. There are no dilated loops of bowel. There is a suprapubic catheter in expected posi tion. There are no pathologically enlarged lymph nodes. There is no free intraperitoneal fluid. There is no osseous metastatic disease. IMPRESSION: 1. Nodule in superior segment left lower lobe with surrounding groundglass and airspace opacities wit h mild activity, consistent with primary bronchogenic carcinoma and changes of radiation therapy. 2. Greater than 20 scattered nodules in the lungs measuring up to 5 mm, stable from 12/18/21, worsened from 10/31/22, and new from 06/19/22. These findings may be metastatic disease or infection. Reviewed, dictated and finalized at location A. TELLER IMPRESSION: 1. Nodule in superior segment left lower lobe with surrounding groundglass and airspace opacities with mild activity, consistent with primary bronchogenic car cinoma and changes of radiation therapy. 2. Greater than 20 scattered nodules in the lungs measuring up to 5 mm, stable from 12/18/21, worsened from 10/31/22, and new from 06/19/22. These findings may b e metastatic disease or infection.
[2023-01-01 08:05] LABS: Glucose Point of Care 98 mg/dl (65-105)
== END 2023-01-01 07:42 | disposition home or self-care (01) ==
PROVIDERS: PCP Student in an Organized Health Care Education/Training Program; Visit Provider Radiology Radiation Oncology
DX: C34.32 Malignant neoplasm of lower lobe, left bronchus or lung (principal); R91.8 Other nonspecific abnormal finding of lung field
CPT/HCPCS: 78815; A9552

== ENCOUNTER 2023-01-02 08:27 | Outpatient (CLI) | payer MEDICARE, SELFPAY ==
--- NOTE | ~2023-01-02 | US_ITS ---
Ultrasound of the Abdominal Aorta INDICATION: Abdominal aortic aneurysm TECHNIQUE: Grayscale, color Doppler, and pulsed Doppler images of the aorta and common iliac arteries were obtained. COMPARISON: None. FINDINGS: Maximum vascular dimensions are as follows: Proximal aorta: 2.8 cm Mid aorta: 3.1 cm Distal aorta: 2.9 cm Right common iliac artery: 1.3 cm Left common iliac artery: 1.0 cm There is atherosclerotic change and mild ectasia of the abdominal aorta without med aneurysm. IMPRESSION: Ectasia of the abdominal aorta without med aneurysm. Reviewed, dictated and finalized at location M. RESIDENTIAL SERVICE TECHNICIAN
--- NOTE | ~2023-01-02 | US_ITS ---
EXAMINATION: US art doppler w press LE BI DATE: 01/02/2023 09:50 INDICATION: Peripheral arterial disease. TECHNIQUE: Segmental pressures and plethysmographic and Doppler waveforms of the brachial and lower e xtremity arteries were obtained. COMPARISON: None. FINDINGS: Right brachial artery pressure could not be measured due to inability to cuff occlude the artery. The left brachial artery pressure is 190 mmHg. The right thigh, below knee, and ankle pressures could not be measured due to inability to cuff occlu de the arteries. The right ankle-brachial index (SERGIO) could not be measured (normal >= 0.9-1.0). The right great toe-brachial index (TBI) is 0.39 (normal >= 0.65). Arterial Doppler waveforms are tripha sic in common femoral artery and biphasic from superficial femoral artery to the ankle. The left thigh, below knee, and ankle pressures could not be measured due to inability to cuff occlud e the arteries. The left SERGIO could not be measured. The left TBI is 0.49. Arterial Doppler waveforms are biphasic from common femoral artery to the ankle. IMPRESSION: 1. Severe hypertension resulting in many nondiagnostic pressure measurements including nondiagnostic ABIs. 2. Decreased bilateral TBIs, consistent with arterial occlusive disease. Reviewed, dictated and finalized at location A. SCHOOL ART TEACHER IMPRESSION: 1. Severe hypertension resulting in many nondiagnostic pressure measurements in cluding nondiagnostic ABIs. 2. Decreased bilateral TBIs, consistent with arterial occlusive disease.
== END 2023-01-02 08:28 | disposition home or self-care (01) ==
LOC: ANHIMG 08:28
PROVIDERS: PCP Student in an Organized Health Care Education/Training Program; Visit Provider Internal Medicine Cardiovascular Disease
DX: I73.9 Peripheral vascular disease, unspecified (principal); I71.43 Infrarenal abdominal aortic aneurysm, without rupture
CPT/HCPCS: 76775; 93923

== ENCOUNTER 2023-02-02 12:27 | Outpatient (CLI) | payer MEDICARE, SELFPAY ==
[2023-02-02 13:32] LABS: Basophils Absolute Auto 0.1 K/mm3 (0.0-0.1); Basophils Percent Auto 0.5 % (0.2-1.2); Eosinophils Absolute Auto 0.3 K/mm3 (0-0.3); Eosinophils Percent Auto 3.4 % (0-4.4); Hematocrit 42.7 % (37.0-47.0); Hemoglobin 13.6 g/dL (12.0-15.0); Immature Granulocyte Absolute 0.03 K/mm3 (0.00-0.031); Immature Granulocyte Percent A 0.3 % (0-0.5); Lymphocytes Absolute Auto 2.05 K/mm3 (0.9-3.2); Lymphocytes Percent Auto 22.5 % (18.3-44.2); Mean Corpuscular HGB Conc 31.9 g/dl (32-36); Mean Corpuscular Hemoglobin 30.4 pg (26-34); Mean Corpuscular Volume 95.5 fl (80-100); Mean Platelet Volume 9.8 fl (7.4-10.4); Monocytes Absolute Auto 0.8 K/mm3 (0.1-0.6); Monocytes Percent Auto 8.5 % (2.6-8.5); Neutrophils Absolute Auto 5.9 K/mm3 (1.3-6.7); Neutrophils Percent Auto 64.8 % (45.5-73.1); Platelet Count Result 297 k/mm3 (150-375); Red Blood Count 4.47 M/mm3 (4.2-5.4); Red Cell Distribution Width 14.4 % (11.5-14.5); White Blood Count 9.1 K/mm3 (4.5-10.0)
[2023-02-02 13:41] LABS: INR 1.1; Partial Thromboplastin Time 29.2 SECONDS (22.3-36.8); Prothrombin Time 13.3 Seconds (11.1-14.7)
== END 2023-02-02 12:28 | disposition home or self-care (01) ==
LOC: ANHSURGERY 12:31
PROVIDERS: PCP Student in an Organized Health Care Education/Training Program; Visit Provider Surgery
DX: C34.32 Malignant neoplasm of lower lobe, left bronchus or lung (principal); Z01.818 Encounter for other preprocedural examination
CPT/HCPCS: 36415; 85025; 85610; 85730

== ENCOUNTER 2023-02-04 02:33 | Day surgery (SDC) | payer MEDICARE, SELFPAY ==
[2023-01-29 11:17] VITALS: BMI 21.2
--- NOTE | 2023-01-29 11:41 | PC.NURSE ---
Report to the Outpatient Waiting Room, entrance under the green pavilion located off [facility], at time _10:00AM on date _02/04/23 . Planned Procedure Time: __12:00PM . Time changes happen often and if your time is changed the preop area will call you the afternoon before. - You and your visitor will be asked to self-screen and do not enter if you have any COVID symptoms. - Only one visitor is requested with a max of two and NO children visitors are allowed at this time. - The patient visitor may be requested to leave or wait in car when not with patient due to distancing restrictions. - A mask is optional within the hospital at this time. Patients may have clear liquids (water, carbonated beverages, clear teas, apple juice) until 3 hours prior to surgery with a maximum of 20 ounces. - No food from midnight until time of surgery Take the following medications with a SIP of water the morning of surgery: __AMLODIPINE, CARVEDILOL, NITROFURANTOIN, AND ALPRAZOLAM, ALBUTEROL INHALER & TRAMADOL NEEDED DO NOT STOP ANY OF YOUR OTHER PRESCRIPTION MEDICATIONS PRIOR TO SURGERY ?EXCEPT THE FOLLOWING Medications to discontinue per physician HOLD ALL VITAMINS/SUPPLEMENT 3 DAYS PRE-OP Date to take last dose____01/31/23 Please no make-up, nail yi, hairspray, perfume, deodorant, or body powder the day of surgery. No jewelry (including any body piercings) or valuables the day of surgery, leave them at home. Please take a shower or bath the night before, or the morning of, surgery with an antibacterial soap. Wear comfortable, loose fitting clothing. Children are encouraged to wear pajamas. - Jewelry must be removed prior to entering the operating room. Rings and piercings that are not removed may be cut off. - The hospital will not accept responsibility for valuables. - Please leave all valuables, including medications, at home the day of surgery. If you are going home after surgery, a licensed street flusher driver must drive you home. - NO public transportation without another adult if you receive anesthesia. - We recommend that an adult stay with you for 24 hours following discharge. - We also recommend that you do not drive, make important decision, drink alcoholic beverages, or take any drugs that were not prescribed by your health care provider for at least 24 hours after your discharge time. Follow any additional instructions given to you from your surgeon. If you or anyone in your household have experienced Covid symptoms in the past week, please notify your surgeon or the nurse liaison at the phone number below for possible testing. Telephone instructions given to _PATIENT and asked if any additional questions and then verbalized understanding. Patient advised to call surgeon office or pre surgery nurse liaison [phone] if any additional questions.
--- NOTE | 2023-02-03 14:22 | PM.SD2 ---
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 She has had radiation treatment. She is in need of chemotherapy. She is taken to the operating room at this time for placement of a Port-A-Cath for administration of chemotherapy. [facility]LY [facility] Past Medical History Medical History (Updated 02/04/23 @ 08:24 by Chilo Tang DO) CAD (coronary artery disease) COPD (chronic obstructive pulmonary disease) Heart attack History of lung cancer Hypertension Macular degeneration Psoriatic arthritis Rheumatoid arthritis Surgical History Surgical History (Updated 02/04/23 @ 08:24 by Chilo Tang DO) History of arthroscopic knee surgery History of carpal tunnel release History of coronary artery stent placement 2011 History of hysterectomy Family History Family History Father Family history of premature coronary heart disease Family history of coronary artery disease Mother Hypertension Family history of elevated blood lipids Sibling Hypertension Social History Social History Smoking packs per day: 0.5 Smoking cigarettes per day: 10.0 Years smoked: 30 Smoking pack-years: 15.00 Smoking status: Former smoker Tobacco type: cigarettes Second hand tobacco smoke exposure: No Smoking end date: 04/25/03 Additional smoking assessment comments: 20 years 1/2-1PPD Alcohol intake: never Substance use: never Substance use type: does not use Living arrangements: with family Additional living arrangements comments: [facility] Gender identity (if verbalized by the patient): Female Sexual Orientation (if Verbalized by the Patient): Straight or Heterosexual Spiritual care concerns: No Same Day Admit/Disch: Med Pre-admit Medications Home Medications Medication Instructions Recorded Confirmed Type aspirin 81 mg tablet,delayed 81 mg PO DAILY 07/10/20 01/29/23 History release (Adult Aspirin Regimen) rosuvastatin 40 mg tablet (Crestor) 40 mg PO DAILY 07/10/20 01/29/23 History tramadol 50 mg tablet 50 mg PO Q6H PRN Pain 07/10/20 01/29/23 History zolpidem 10 mg tablet 10 mg PO HS 07/10/20 01/29/23 History alprazolam 0.25 mg tablet 0.25 mg PO TID PRN Anxiety 05/28/21 02/04/23 History carvedilol 12.5 mg tablet 12.5 mg PO BID 05/28/21 02/04/23 History albuterol sulfate 90 mcg/actuation 1 puff inhalation PRN PRN 01/29/22 01/29/23 History aerosol inhaler Shortness Of Breath amlodipine 10 mg tablet 10 mg PO QAM 01/29/23 02/04/23 History cholecalciferol (vitamin D3) 50 50 mcg PO DAILY 01/29/23 02/04/23 History mcg (2,000 unit) capsule losartan 100 mg tablet 100 mg PO QNOON 01/29/23 01/29/23 History nitrofurantoin macrocrystal 50 mg 50 mg PO QAM 01/29/23 02/04/23 History capsule sertraline 100 mg tablet 100 mg PO HS 01/29/23 01/29/23 History tizanidine 4 mg tablet 4 mg PO DAILY PRN Muscle Spasm 01/29/23 01/29/23 History ibuprofen 600 mg tablet 600 mg PO Q6H PRN pain #14 tabs 02/04/23 Rx oxycodone-acetaminophen 5 mg-325 0.5 - 1 tablet PO Q6H PRN pain #10 02/04/23 Rx mg tablet tabs Exam Const: General: comfortable, no acute distress, alert and awake HENMT: Head: normocephalic and atraumatic Mouth: Yes Normal oral and palatal mucosa present Eyes: Conjunctivae: conjunctivae normal Pupils: Equal, round and reactive pupils present EOM: EOMs intact bilaterally Neck: Neck: normal visual inspection, no lymphadenopathy and nontender Resp: Effort & Inspection: normal respiratory effort Auscultation: clear to auscultation bilaterally Cardio: Rate: regular rate Rhythm: regular rhythm Heart sounds: no gallops, no murmurs and no rubs GI: Inspection: non-distended GI Palp: Yes Soft to palpation, No Tenderness to palpation present (GI), No Hepatomegaly present and No Splenomegaly present
--- NOTE | ~2023-02-04 | XR_ITS ---
EXAMINATION: XR fl guide central line place DATE: 02/04/2023 11:08 INDICATION: Port placement. TECHNIQUE: 2 intraoperative fluoroscopic views of the chest were obtained. I was not present. Fluoros copy exposure time was 121 seconds. COMPARISON: Chest CT 12/12/2022 FINDINGS: There is a right subclavian port with tip at superior cavoatrial junction. IMPRESSION: 1. Port tip at superior cavoatrial junction. Reviewed, dictated and finalized at location A.
--- NOTE | ~2023-02-04 | XR_ITS ---
XR chest port-a-cath/central 02/04/2023 11:33 Indication: Portacatheter placement Procedure: AP portable chest Comparison: Comparison to multiple prior studies sequentially, with oldest reviewed study dated 04/04. Findings: Portacatheter tip in the SVC. Heart size normal. Decreased density of left upper lobe nodul e compared with prior study, consistent with treated malignancy. No acute focal pneumonia, edema, ple ural effusion or pneumothorax. No acute osseous abnormality. Osteopenia. Impression: 1: Decreased density and possibly size of left upper lobe nodule compared with most recent study, con sistent with treated malignancy. Reviewed, dictated and finalized at location B. Impression: 1: Decreased density and possibly size of left upper lobe nodule compared with most recent study, consistent with treated malignancy.
--- NOTE | 2023-02-04 08:23 | WPDANESEPPF ---
Anes - Initial Pre Proc Eval Procedure: Operation Date: 02/04/23 10:30 Proposed Procedures p Insertion Jesica Cath - Yousuf Andrews MD Date/Time: 02/04/23 08:23 Surgeon: Yousuf Andrews MD Pre Op Diagnosis: Malignant Neoplasm Lower Lobe Left Lung Patient Data Age: 73 Gender: F Height: 1.63 m Weight: 56 kg Allergies Allergy/AdvReac Type Severity Reaction Status Date / Time No Known Allergies Allergy Verified 01/29/23 11:07 Home Medications Medication Instructions Recorded Confirmed Type aspirin 81 mg tablet,delayed 81 mg PO DAILY 07/10/20 01/29/23 History release (Adult Aspirin Regimen) rosuvastatin 40 mg tablet (Crestor) 40 mg PO DAILY 07/10/20 01/29/23 History tramadol 50 mg tablet 50 mg PO Q6H PRN Pain 07/10/20 01/29/23 History zolpidem 10 mg tablet 10 mg PO HS 07/10/20 01/29/23 History alprazolam 0.25 mg tablet 0.25 mg PO TID PRN Anxiety 05/28/21 01/29/23 History carvedilol 12.5 mg tablet 12.5 mg PO BID 05/28/21 01/29/23 History albuterol sulfate 90 mcg/actuation 1 puff inhalation PRN PRN 01/29/22 01/29/23 History aerosol inhaler Shortness Of Breath amlodipine 10 mg tablet 10 mg PO QAM 01/29/23 01/29/23 History cholecalciferol (vitamin D3) 50 50 mcg PO DAILY 01/29/23 01/29/23 History mcg (2,000 unit) capsule losartan 100 mg tablet 100 mg PO QNOON 01/29/23 01/29/23 History nitrofurantoin macrocrystal 50 mg 50 mg PO QAM 01/29/23 01/29/23 History capsule sertraline 100 mg tablet 100 mg PO HS 01/29/23 01/29/23 History tizanidine 4 mg tablet 4 mg PO DAILY PRN Muscle Spasm 01/29/23 01/29/23 History Patient hx anesthesia problems: none Family hx anesthesia problems: none Results Review: All pre-operative results and documents have been reviewed as part of the pre-operative evaluation. [facility] Past Medical History Medical History (Updated 02/04/23 @ 08:24 by Chilo Tang DO) CAD (coronary artery disease) COPD (chronic obstructive pulmonary disease) Heart attack History of lung cancer Hypertension Macular degeneration Psoriatic arthritis Rheumatoid arthritis Surgical History Surgical History (Updated 02/04/23 @ 08:24 by Chilo Tang DO) History of arthroscopic knee surgery History of carpal tunnel release History of coronary artery stent placement x2 2011 History of hysterectomy Family History Family History Father Family history of premature coronary heart disease Family history of coronary artery disease Mother Hypertension Family history of elevated blood lipids Sibling Hypertension Social History Social History Smoking packs per day: 0.5 Smoking cigarettes per day: 10.0 Years smoked: 30 Smoking pack-years: 15.00 Smoking status: Former smoker Tobacco type: cigarettes Second hand tobacco smoke exposure: No Smoking end date: 04/25/03 Additional smoking assessment comments: 20 years 1/2-1PPD Alcohol intake: never Substance use: never Substance use type: does not use Living arrangements: with family Additional living arrangements comments: [facility] Gender identity (if verbalized by the patient): Female Sexual Orientation (if Verbalized by the Patient): Straight or Heterosexual Spiritual care concerns: No Anes - Eval Final PreProcedure Day of Procedure 02/04/23 08:23 Patient weight: normal Heart: regular rate and rhythm Lungs: clear to auscultation and normal air movement Airway: Mallampati scale class II Neurological: alert and oriented Last oral intake: >/= 8 hours ASA classification: III Emergent: no Anesthetic plan: proceed Anesthesia type and monitoring: general GIVS and standard monitoring Results Review: All pre-operative results and documents have been reviewed as part of the pre-operative evaluation. Informed Consent: The patient's anesthetic plan and its attendant risks and benefits were discusse
[2023-02-04 08:50] VITALS: BP 131/59; PULSE 77; RESP 14; TEMP 36.7; O2SAT 98; BMI 20.7
[2023-02-04] MEDS: LACTATED RINGERS 1,000 ML 30 ML IV CONT ×2 (09:10→11:22)
[2023-02-04] MEDS: KETOROLAC 15 MG/ML VIAL (*BKC) IV PUSH (09:13)
--- NOTE | 2023-02-04 10:00 | WPDHPUPDATE1 ---
History and Physical Update Update Date/Time: 02/04/23 10:00 History and Physical has been reviewed, including an updated exam of the patient. There are NO changes in the patient's condition. Risks, benefits, and alternatives have been discussed and questions answered. Patient agrees to proceed with procedure.
[2023-02-04] MEDS: ceFAZolin 2 GM/D5W 50 ML 2 GM/50 ML BAG IVPB (10:34)
[2023-02-04] MEDS: BUPIVACAINE/EPINEPHRINE 0.5% 50 ML VIAL 30 ML INFILTRATE (10:46)
[2023-02-04] MEDS: HEPARIN SODIUM 5,000 UNITS/ML VIAL 1000 UNITS IRRIGATION (10:49)
[2023-02-04 11:22] VITALS: BP 112/59; PULSE 57; RESP 14; O2SAT 100
--- NOTE | 2023-02-04 11:27 | W.PM.PROC2 ---
Procedure Note - Detailed Date of Procedure 02/04/23 Pre-op Diagnosis Malignant Neoplasm Lower Lobe Left Lung, inadequate venous access Post-op Diagnosis Same Procedure Performed Placement right subclavian vortex Port-A-Cath under fluoroscopy Surgeon Yousuf Andrews MD Cyber Threat Analyst Laine HEMPHILL Anesthesia General and Local (0.5% Marcaine with epinephrine) Indications Patient is a 73-year-old woman with the done in operable left lung cancer. She is planned to be treated with intravenous chemotherapy and is taken to surgery now for placement of a Port-A-Cath. Findings Port-A-Cath tip in the distal SVC right atrial junction. Description of Procedure Patient was taken to surgery and IV sedation was introduced. The right neck and right subclavian areas were prepped and draped. The proposed incision was marked on the skin in the right subclavian area. Local anesthesia was infiltrated into the skin and the deeper subcutaneous tissues. Incision was made and dissection was carried down through the subcutaneous. We continue the dissection down through the pectoralis major fascia. A subfascial pocket was then created overlying the pectoralis muscle. Cautery was used for hemostasis. Local was infiltrated into the pocket and under the right clavicle. The right subclavian vein was then cannulated and a guidewire was attempted to be passed. However, the guidewire was only going up into the internal jugular vein and had to be removed. We then again cannulated the right subclavian vein. This time the guidewire passed down into the superior vena cava. The position was documented by C-arm fluoroscopy. I then used C-arm fluoroscopy to measure the length of Port-A-Cath tubing that would be needed. The tubing was cut to the appropriate length. I then passed an introducer and sheath over the guidewire and into the superior vena cava. This was done again using C-arm fluoroscopy. I then removed the guidewire and the introducer. The Port-A-Cath passed through the sheath and into the superior vena cava. The sheath was removed. We checked the position under fluoroscopy and appeared to be in very good position. The Port-A-Cath aspirated blood and flushed easily with heparin. I sutured the Port-A-Cath to the pectoralis major muscle with 3-0 silk suture. The Port-A-Cath was again checked and aspirated blood and flushed easily with heparin. The wound was then closed with layered closure of 2-0 Vicryl. The skin was closed with subcuticular running 4-0 Monocryl skin suture. Wound was dressed with Exofin surgical adhesive. Patient was awakened and taken to recovery in good condition. Sponge needle counts were correct x2. Implants Vortex Port-A-Cath Estimated Blood Loss -5.0 Drains No Packing No Pathology None sent Complications No immediate complications Condition Stable Disposition Same day [facility] Billing Surgery - Charge Forward: Surgery Billing (Placement Port-A-Cath under fluoroscopy)
[2023-02-04 11:50] VITALS: BP 130/63; PULSE 56; RESP 16; O2SAT 97
[2023-02-04 12:20] VITALS: BP 136/62; PULSE 57; RESP 16; O2SAT 95
[2023-02-04 12:46] VITALS: BP 147/67; PULSE 60; RESP 16
== END 2023-02-04 12:57 | disposition home or self-care (01) ==
PROVIDERS: PCP Student in an Organized Health Care Education/Training Program; Visit Provider Surgery
PROC: (CPT 36561; principal; 2023-02-04 10:30)
DX: C34.32 Malignant neoplasm of lower lobe, left bronchus or lung (principal); I25.10 Atherosclerotic heart disease of native coronary artery without angina pectoris; J44.9 Chronic obstructive pulmonary disease, unspecified; I25.2 Old myocardial infarction; M06.9 Rheumatoid arthritis, unspecified; L40.50 Arthropathic psoriasis, unspecified; H35.30 Unspecified macular degeneration; Z79.82 Long term (current) use of aspirin; Z79.51 Long term (current) use of inhaled steroids; Z95.5 Presence of coronary angioplasty implant and graft; Z87.891 Personal history of nicotine dependence; Z92.3 Personal history of irradiation; Z79.891 Long term (current) use of opiate analgesic
CPT/HCPCS: 36561; 36415; 77001; 85025; 85610; 85730; C1788; J0690; J1100; J1644; J1885; J2405; J2704; J3010; J7030; J7120

== ENCOUNTER 2023-03-19 11:15 | Emergency (ER) | payer MEDICARE, SELFPAY ==
--- NOTE | ~2023-03-19 | XR_ITS ---
EXAMINATION: XR foot RT min 3V DATE: 03/19/2023 12:44 INDICATION: Dorsal lateral right foot swelling and pain TECHNIQUE: Dorsoplantar, two oblique and lateral views of the right foot were obtained. COMPARISON: 03/02/2019 FINDINGS: Alignment is normal. No acute fracture. Chronic focal cortical thickening along the medial side of th e third metatarsal diaphysis suggestive of an old healed stress fracture. Moderate osteoarthritis at the first metatarsophalangeal joint. Mild osteoarthritis at several of the tarsal metatarsal and inte rphalangeal joints. No erosions to suggest inflammatory arthritis. Small Achilles calcaneal spur. IMPRESSION: 1. No acute osseous abnormality. 2. 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 Reviewed, dictated and finalized at location A.
[2023-03-19 11:19] VITALS: BP 141/64; PULSE 80; RESP 18; TEMP 37.1; O2SAT 100
[2023-03-19 11:28] VITALS: BP 141/64; PULSE 80; RESP 18; O2SAT 100
[2023-03-19 12:42] LABS: Basophils Percent Auto 0.2 % (0.2-1.2); Eosinophils Absolute Auto 0.1 K/mm3 (0-0.3); Hematocrit 34.7 % (37.0-47.0); Hemoglobin 11.3 g/dL (12.0-15.0); Immature Granulocyte Absolute 0.03 K/mm3 (0.00-0.031); Immature Granulocyte Percent A 0.5 % (0-0.5); Lymphocytes Absolute Auto 0.87 K/mm3 (0.9-3.2); Lymphocytes Percent Auto 13.4 % (18.3-44.2); Mean Corpuscular HGB Conc 32.6 g/dl (32-36); Mean Corpuscular Hemoglobin 30.7 pg (26-34); Mean Corpuscular Volume 94.3 fl (80-100); Mean Platelet Volume 8.9 fl (7.4-10.4); Monocytes Absolute Auto 0.6 K/mm3 (0.1-0.6); Monocytes Percent Auto 8.6 % (2.6-8.5); Neutrophils Absolute Auto 4.9 K/mm3 (1.3-6.7); Neutrophils Percent Auto 75.3 % (45.5-73.1); Platelet Count Result 252 k/mm3 (150-375); Red Blood Count 3.68 M/mm3 (4.2-5.4); Red Cell Distribution Width 14.3 % (11.5-14.5); White Blood Count 6.5 K/mm3 (4.5-10.0)
[2023-03-19 12:57] LABS: Alanine Aminotransferase 20 U/L (6-35); Albumin Level 3.6 g/dL (3.5-5.1); Alkaline Phosphatase 60 U/L (38-126); Anion Gap 3 mmol/L (8-16); Aspartate Amino Transferase 28 U/L (14-36); Bilirubin,Total 0.4 mg/dL (0.2-1.3); Blood Urea Nitrogen 12 mg/dL (7-17); CRP 1.4 mg/dL (<1.0); Calcium 8.5 mg/dL (8.4-10.2); Carbon Dioxide 29 mmol/L (22-30); Chloride 106 mmol/L (98-107); Estimated CRCL calculation 73 ml/min; Estimated Glomerular Filt Rate > 60; Glucose 134 mg/dL (65-110); Potassium 3.4 mmol/L (3.4-5.0); Sodium 138 mmol/L (137-145); Uric Acid 2.2 mg/dL (2.5-7.5)
--- NOTE | 2023-03-19 13:20 | ED.LOWEXIN ---
HPI - Extremity Injury (Lower) General Chief Complaint: Extremity Injury, Lower Stated Complaint: foot pain Time Seen by Provider: 03/19/23 12:05 Source: patient Mode of arrival: EMS Limitations: no limitations History of Present Illness HPI Narrative: 73-year-old with a history of RA, lung Ca , here with complaints of right foot pain which started this morning patient. She states that she is not on any medication for rheumatoid as presently she is going through chemo. She denies any trauma to the foot. No previous history of gout. She states that she is unable to bear weight on the foot because of the pain. MD complaint: other (Foot pain) Onset (ago): day(s) (1) Injury: Right: foot Place: home Severity: severe Relieving factors: nothing Exacerbating factors: nothing Other symptoms: none Related Data Home Medications Medication Instructions Recorded Confirmed aspirin 81 mg tablet,delayed 81 mg PO DAILY 07/10/20 02/20/23 release (Adult Aspirin Regimen) rosuvastatin 40 mg tablet (Crestor) 40 mg PO DAILY 07/10/20 02/20/23 tramadol 50 mg tablet 50 mg PO Q6H PRN Pain 07/10/20 02/20/23 zolpidem 10 mg tablet 10 mg PO HS 07/10/20 02/20/23 alprazolam 0.25 mg tablet 0.25 mg PO TID PRN Anxiety 05/28/21 02/20/23 carvedilol 12.5 mg tablet 12.5 mg PO BID 05/28/21 02/20/23 albuterol sulfate 90 mcg/actuation 1 puff inhalation PRN PRN 01/29/22 02/20/23 aerosol inhaler Shortness Of Breath amlodipine 10 mg tablet 10 mg PO QAM 01/29/23 02/20/23 cholecalciferol (vitamin D3) 50 50 mcg PO DAILY 01/29/23 02/20/23 mcg (2,000 unit) capsule losartan 100 mg tablet 100 mg PO QNOON 01/29/23 02/20/23 nitrofurantoin macrocrystal 50 mg 50 mg PO QAM 01/29/23 02/20/23 capsule sertraline 100 mg tablet 100 mg PO HS 01/29/23 02/20/23 tizanidine 4 mg tablet 4 mg PO DAILY PRN Muscle Spasm 01/29/23 02/20/23 Allergies Allergy/AdvReac Type Severity Reaction Status Date / Time No Known Allergies Allergy Verified 03/19/23 11:31 Review of Systems Review of Systems: All systems reviewed & are unremarkable except as noted in HPI and below Constitutional: Constitutional: Reports no additional constitutional complaints Eyes: Eyes: Reports no additional eye complaints ENT: Reports system reviewed and no additional complaints, except as documented Cardiovascular: Cardiovascular: Reports no additional cardiovascular complaints Respiratory: Respiratory: Reports no additional respiratory complaints Gastrointestinal: Gastrointestinal: Reports no additional gastrointestinal complaints Musculoskeletal: Musculoskeletal: Reports as per HPI Neurologic: Reports system reviewed and no additional complaints, except as documented [facility] Past Medical History Medical History CAD (coronary artery disease) COPD (chronic obstructive pulmonary disease) Heart attack History of lung cancer Hypertension Macular degeneration Psoriatic arthritis Rheumatoid arthritis Surgical History Surgical History History of arthroscopic knee surgery History of carpal tunnel release History of coronary artery stent placement 2011 History of hysterectomy Family History Family History Father Family history of premature coronary heart disease Family history of coronary artery disease Mother Hypertension Family history of elevated blood lipids Sibling Hypertension Social History Social History Smoking packs per day: 0.5 Smoking cigarettes per day: 10.0 Years smoked: 30 Smoking pack-years: 15.00 Smoking status: Former smoker Tobacco type: cigarettes Second hand tobacco smoke exposure: No Smoking end date: 10/26/97 Additional smoking assessment comments: 20 years 1/2-1PPD Alcohol intake: never Substance use: never Substance use t
[2023-03-19] MEDS: HEPARIN SODIUM LOCK FLUSH 500 UNITS/5 ML VIAL (13:50)
[2023-03-19] MEDS: predniSONE 20 MG TABLET 60 MG PO (13:50)
[2023-03-19] MEDS: HYDROcodone/acetaminophen (*CRX) 5-325 MG TABLET 1 TAB PO (13:50)
[2023-03-19 14:00] VITALS: BP 136/60; PULSE 78; RESP 18; O2SAT 100
== END 2023-03-19 14:04 | disposition home or self-care (01) ==
PROVIDERS: Emergency Provider Family Medicine; PCP Student in an Organized Health Care Education/Training Program; Referring Provider Internal Medicine Hematology & Oncology
DX: M79.671 Pain in right foot (principal); C34.90 Malignant neoplasm of unspecified part of unspecified bronchus or lung; I25.10 Atherosclerotic heart disease of native coronary artery without angina pectoris; J44.9 Chronic obstructive pulmonary disease, unspecified; I25.2 Old myocardial infarction; H35.30 Unspecified macular degeneration; I10 Essential (primary) hypertension; M06.9 Rheumatoid arthritis, unspecified; L40.50 Arthropathic psoriasis, unspecified; Z95.5 Presence of coronary angioplasty implant and graft; Z90.710 Acquired absence of both cervix and uterus; Z87.891 Personal history of nicotine dependence; Z79.82 Long term (current) use of aspirin; M19.071 Primary osteoarthritis, right ankle and foot; Z79.60 Long term (current) use of unspecified immunomodulators and immunosuppressants
CPT/HCPCS: 36415; 73630; 80053; 84550; 85025; 86140; 99283; A9270; J1642; J7512

== ENCOUNTER 2023-07-08 10:27 | Emergency (ER) | payer MEDICARE, SELFPAY ==
--- NOTE | ~2023-07-08 | CT_ITS ---
EXAMINATION: CT abdomen pelvis w con DATE: 07/08/2023 14:07 INDICATION: Lower abdomen pain TECHNIQUE: Computed tomography (CT) of the abdomen and pelvis was performed with 100 cc Omnipaque 350 intravenous contrast. The dose-length product was 210.71 mGy-cm. Automated exposure control and iter ative reconstruction technique were employed. COMPARISON: CT dated 01/10/2022. FINDINGS: Lung bases unremarkable. Heart size normal. No significant pleural or pericardial effusion. There is a suprapubic catheter. Bladder wall is mildly irregular and thickened, suspicious for chron ic cystitis. Fatty infiltration of the liver. The spleen, pancreas, adrenal glands and left kidney are unremarkabl e. There is a right renal cyst. Gallbladder is present. No free air or free fluid. There is atheroscl erosis of the aorta with ectasia. No evidence for aneurysm. No lymphadenopathy. Severe lumbar spondyl osis. There is scoliosis. IMPRESSION: 1. Diffuse abnormal thickening of the bladder wall which is decompressed, suspicious for chronic cyst itis. Suprapubic catheter present. Reviewed, dictated and finalized at location B. IMPRESSION: 1. Diffuse abnormal thickening of the bladder wall which is decompressed, suspi cious for chronic cystitis. Suprapubic catheter present.
[2023-07-08 10:49] VITALS: BP 109/59; PULSE 79; RESP 20; TEMP 36.6; O2SAT 100
[2023-07-08 11:57] LABS: Appearance Urine Clear (Clear); Color Urine Yellow (Yellow); Protein Urine Trace mg/dL (Negative)
[2023-07-08 11:58] LABS: Bilirubin Urine Negative (Negative); Blood Urine 2+ (Negative); Glucose Urine UA Negative (Negative); Ketones Urine Negative (Negative); Leukocyte Esterase Ur 2+ LEU/UL (Negative); Nitrate Urine Negative (Negative); Urobilinogen Urine 0.2 mg/dL (<2.0)
[2023-07-08 12:11] LABS: Bacteria Urine None Seen /hpf; Need Manual Microscopic Reviewed; RBC Urine 0-2 /hpf (0-2); Squamous Epithelial Cell Urine None seen /hpf (Few); WBC Urine 51-100 /hpf
[2023-07-08 12:12] LABS: Add Urine Microscopic? YES
--- NOTE | 2023-07-08 13:28 | ED.GENADULT ---
HPI - General Adult General Chief complaint: Urogenital-Female Stated complaint: Catheter pain and infection Time Seen by Provider: 07/08/23 11:57 History of Present Illness HPI narrative: 73-year-old female being treated for lung cancer presented emergency department for evaluation of increased urinary pain. Patient does have an indwelling suprapubic Wiley catheter that was just changed on Thursday at urology's office. Patient had been taking Cipro but on was switched to Macrobid. Patient states that the Macrobid causes her to have nausea and vomiting. Patient stopped taking the Macrobid yesterday. Upon arrival to the emergency department patient is complaining of suprapubic abdominal pain has been persistent for the last few months. Patient does have a follow-up ultrasound on the . Patient is also complaining of dehydration and generalized weakness. Related Data Home Medications Medication Instructions Recorded Confirmed aspirin 81 mg tablet,delayed 81 mg PO DAILY 07/10/20 05/28/23 release (Adult Aspirin Regimen) rosuvastatin 40 mg tablet (Crestor) 40 mg PO DAILY 07/10/20 05/28/23 tramadol 50 mg tablet 50 mg PO Q6H PRN Pain 07/10/20 05/28/23 zolpidem 10 mg tablet 10 mg PO HS 07/10/20 05/28/23 alprazolam 0.25 mg tablet 0.25 mg PO TID PRN Anxiety 05/28/21 05/28/23 carvedilol 12.5 mg tablet 12.5 mg PO BID 05/28/21 05/28/23 albuterol sulfate 90 mcg/actuation 1 puff inhalation PRN PRN 01/29/22 05/28/23 aerosol inhaler Shortness Of Breath amlodipine 10 mg tablet 10 mg PO QAM 01/29/23 05/28/23 cholecalciferol (vitamin D3) 50 50 mcg PO DAILY 01/29/23 05/28/23 mcg (2,000 unit) capsule losartan 100 mg tablet 100 mg PO QNOON 01/29/23 05/28/23 nitrofurantoin macrocrystal 50 mg 50 mg PO QAM 01/29/23 05/28/23 capsule sertraline 100 mg tablet 100 mg PO HS 01/29/23 05/28/23 tizanidine 4 mg tablet 4 mg PO DAILY PRN Muscle Spasm 01/29/23 05/28/23 Allergies Allergy/AdvReac Type Severity Reaction Status Date / Time Sulfa (Sulfonamide AdvReac Nausea Verified 07/08/23 11:27 Antibiotics) Review of Systems Review of Systems: All systems reviewed & are unremarkable except as noted in HPI and below PMFSH Past Medical History Medical History CAD (coronary artery disease) COPD (chronic obstructive pulmonary disease) Heart attack History of lung cancer Hypertension Macular degeneration Psoriatic arthritis Rheumatoid arthritis Surgical History Surgical History History of arthroscopic knee surgery History of carpal tunnel release History of coronary artery stent placement 2011 History of hysterectomy Family History Family History Father Family history of premature coronary heart disease Family history of coronary artery disease Mother Hypertension Family history of elevated blood lipids Sibling Hypertension Social History Social History Smoking packs per day: 0.5 Smoking cigarettes per day: 10.0 Years smoked: 30 Smoking pack-years: 15.00 Smoking status: Former smoker Tobacco type: cigarettes Second hand tobacco smoke exposure: No Smoking end date: 10/26/97 Additional smoking assessment comments: 20 years 1/2-1PPD Alcohol intake: never Substance use: never Substance use type: does not use Living arrangements: with family Additional living arrangements comments: HUSB Gender identity (if verbalized by the patient): Female Sexual Orientation (if Verbalized by the Patient): Straight or Heterosexual Spiritual care concerns: No Exam Narrative: APPEARANCE: Well appearing, no pain, no distress, well-nourished. HEAD: normocephalic, atraumatic. EYES: PERRLA/EOMI, conjunctivae clear. NOSE: Normal no drainage NECK: Supple. No adenopathy, no masses. RESPIRA
[2023-07-08] MEDS: SODIUM CHLORIDE 0.9% IV 1,000 ML 999 ML IV CONT (13:30)
[2023-07-08] MEDS: HYDROmorphone HCL INJ (*CRX) 1 MG/ML SYR 0.5 MG IV PUSH (13:37)
[2023-07-08 13:39] LABS: Basophils Absolute Auto 0.1 K/mm3 (0.0-0.1); Basophils Percent Auto 0.4 % (0.2-1.2); Eosinophils Absolute Auto 0.5 K/mm3 (0-0.3); Eosinophils Percent Auto 3.5 % (0-4.4); Hematocrit 39.7 % (37.0-47.0); Hemoglobin 12.7 g/dL (12.0-15.0); Immature Granulocyte Absolute 0.19 K/mm3 (0.00-0.031); Immature Granulocyte Percent A 1.4 % (0-0.5); Lymphocytes Absolute Auto 1.77 K/mm3 (0.9-3.2); Lymphocytes Percent Auto 13.1 % (18.3-44.2); Mean Corpuscular Hemoglobin 31.9 pg (26-34); Mean Corpuscular Volume 99.7 fl (80-100); Mean Platelet Volume 9.4 fl (7.4-10.4); Monocytes Absolute Auto 1.1 K/mm3 (0.1-0.6); Monocytes Percent Auto 8.1 % (2.6-8.5); Neutrophils Absolute Auto 9.9 K/mm3 (1.3-6.7); Neutrophils Percent Auto 73.5 % (45.5-73.1); Platelet Count Result 296 k/mm3 (150-375); Red Blood Count 3.98 M/mm3 (4.2-5.4); Red Cell Distribution Width 15.4 % (11.5-14.5); White Blood Count 13.5 K/mm3 (4.5-10.0)
[2023-07-08 13:50] LABS: Alanine Aminotransferase 15 U/L (6-35); Albumin Level 3.9 g/dL (3.5-5.1); Alkaline Phosphatase 62 U/L (38-126); Anion Gap 5 mmol/L (8-16); Aspartate Amino Transferase 24 U/L (14-36); Bilirubin,Total 0.5 mg/dL (0.2-1.3); Blood Urea Nitrogen 13 mg/dL (7-17); Calcium 9.4 mg/dL (8.4-10.2); Carbon Dioxide 28 mmol/L (22-30); Chloride 108 mmol/L (98-107); Estimated CRCL calculation 47 ml/min; Estimated Glomerular Filt Rate > 60; Glucose 97 mg/dL (65-110); Potassium 3.6 mmol/L (3.4-5.0); Sodium 141 mmol/L (137-145)
[2023-07-08 13:51] LABS: Lactic Acid Reflex 1.3 mmol/L (0.7-2.0)
[2023-07-08] MEDS: FLUCONAZOLE 150 MG TABLET PO (15:21)
== END 2023-07-08 15:47 | disposition home or self-care (01) ==
PROVIDERS: Emergency Provider Emergency Medicine; PCP Student in an Organized Health Care Education/Training Program
DX: B37.49 Other urogenital candidiasis (principal); C34.90 Malignant neoplasm of unspecified part of unspecified bronchus or lung; I25.10 Atherosclerotic heart disease of native coronary artery without angina pectoris; J44.9 Chronic obstructive pulmonary disease, unspecified; I25.2 Old myocardial infarction; I10 Essential (primary) hypertension; H35.30 Unspecified macular degeneration; L40.50 Arthropathic psoriasis, unspecified; M06.9 Rheumatoid arthritis, unspecified; Z90.710 Acquired absence of both cervix and uterus; Z95.5 Presence of coronary angioplasty implant and graft; Z87.891 Personal history of nicotine dependence; Z79.82 Long term (current) use of aspirin
CPT/HCPCS: 36415; 74177; 80053; 81001; 83605; 85025; 87086; 96361; 96374; 99284; A9270; J1170; J7030; Q9967

== ENCOUNTER 2023-07-22 08:51 | Outpatient (CLI) | payer MEDICARE, SELFPAY ==
--- NOTE | ~2023-07-22 | CT_ITS ---
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 The dose-length product (DLP) was 142.83 mGy-cm. Ite rative reconstruction was used. COMPARISON: 12/12/2022 FINDINGS: There is mild emphysema. Small scattered nodules previously demonstrate interval improvemen t. There is a 1.6 x 1.3 cm nodule in the superior segment of the left lower lobe with surrounding josé miguel undglass and airspace opacity which is not significantly changed. There is a 1.2 x 0.8 cm pleural-bas ed nodule at the posterolateral aspect of the superior segment of the right lower lobe, new since the comparison examination. There is a small right pleural effusion. No pneumothorax is identified. A ri ght subclavian Port-A-Cath ends with its tip in the distal superior vena cava. Calcified coronary art daquan atherosclerosis is noted. No pathologically enlarged thoracic lymph nodes are identified. The hea rt size is normal. There is severe cervical spondylosis. IMPRESSION: 1. Multiple scattered pulmonary nodules with interval improvement, consistent with resolving infectio n/inflammation. 2. Stable nodule in the superior segment of the left lower lobe, consistent with primary bronchogenic carcinoma. 3. New pleural-based nodule in the superior segment of the right lower lobe which may be infectious o r inflammatory given short interval since the comparison examination. Follow-up low-dose CT in three months is recommended. 4. Small right pleural effusion. Reviewed, dictated and finalized at location F. IMPRESSION: 1. Multiple scattered pulmonary nodules with interval improvement, consistent w ith resolving infection/inflammation. 2. Stable nodule in the superior segment of the left lower lobe, consistent wit h primary bronchogenic carcinoma. 3. New pleural-based nodule in the superior segment of the right lower lobe whi ch may be infectious or inflammatory given short interval since the comparison examination. Follow-up low-dose CT in three months is recommended. 4. Small right pleural effusion.
== END 2023-07-22 08:52 | disposition home or self-care (01) ==
PROVIDERS: PCP Student in an Organized Health Care Education/Training Program; Visit Provider Internal Medicine Hematology & Oncology
DX: C34.92 Malignant neoplasm of unspecified part of left bronchus or lung (principal); R91.8 Other nonspecific abnormal finding of lung field; J90 Pleural effusion, not elsewhere classified
CPT/HCPCS: 71260; Q9967

== ENCOUNTER 2023-07-29 08:44 | Outpatient (RCR) | payer MEDICARE, SELFPAY ==
[2023-02-20 14:02] VITALS: BP 140/74; PULSE 66; RESP 18; O2SAT 97
[2023-02-20] MEDS: CYANOCOBALAMIN INJ 1,000 MCG/ML VIAL 1000 MCG IM (14:15)
--- NOTE | 2023-02-20 14:58 | PC.NURSE ---
Talked with Dr Bee he will order home medications dexamethasone and folic acid. Patient has ondansetron and emla cream already. Advised patient to have stool softener and Imodium at home. will also place order for urine culture.
[2023-02-20 15:59] LABS: Hepatitis B Surface Antigen Negative (Negative)
[2023-02-23 17:03] LABS: NIL 0.01 IU/mL; Quantiferon TB Plus, 1T NEGATIVE (NEGATIVE)
[2023-03-04 09:24] LABS: Basophils Percent Auto 0.1 % (0.2-1.2); Hematocrit 35.5 % (37.0-47.0); Hemoglobin 11.9 g/dL (12.0-15.0); Immature Granulocyte Absolute 0.13 K/mm3 (0.00-0.031); Immature Granulocyte Percent A 0.8 % (0-0.5); Lymphocytes Absolute Auto 1.05 K/mm3 (0.9-3.2); Lymphocytes Percent Auto 6.3 % (18.3-44.2); Mean Corpuscular HGB Conc 33.5 g/dl (32-36); Mean Corpuscular Hemoglobin 30.9 pg (26-34); Mean Corpuscular Volume 92.2 fl (80-100); Mean Platelet Volume 9.1 fl (7.4-10.4); Monocytes Absolute Auto 0.9 K/mm3 (0.1-0.6); Monocytes Percent Auto 5.4 % (2.6-8.5); Neutrophils Absolute Auto 14.6 K/mm3 (1.3-6.7); Neutrophils Percent Auto 87.4 % (45.5-73.1); Platelet Count Result 294 k/mm3 (150-375); Red Blood Count 3.85 M/mm3 (4.2-5.4); Red Cell Distribution Width 14.6 % (11.5-14.5); White Blood Count 16.7 K/mm3 (4.5-10.0)
[2023-03-04 09:28] LABS: Blood Urea Nitrogen 20 mg/dL (8-26); Carbon Dioxide 22 mmol/L (22-30); Chloride 107 mmol/L (98-109); Estimated Glomerular Filt Rate > 60; Glucose 180 mg/dL (70-105); Ionized Calcium (POC) 1.11 mmol/L (1.11-1.31); Potassium 3.5 mmol/L (3.5-4.9); Sodium 141 mmol/L (138-146)
[2023-03-04 09:46] VITALS: BP 150/64; PULSE 65; TEMP 36.2; O2SAT 100
[2023-03-04] MEDS: PEMBROLIZUMAB 200 MG in SODIUM CHLORIDE 0.9% IV 100 ML 216 MG IVPB (10:04)
[2023-03-04 10:20] LABS: Alanine Aminotransferase 21 U/L (6-35); Albumin Level 3.9 g/dL (3.5-5.1); Alkaline Phosphatase 57 U/L (38-126); Anion Gap 10 mmol/L (8-16); Aspartate Amino Transferase 23 U/L (14-36); Bilirubin,Total 0.5 mg/dL (0.2-1.3); Blood Urea Nitrogen 20 mg/dL (7-17); Calcium 8.7 mg/dL (8.4-10.2); Carbon Dioxide 21 mmol/L (22-30); Chloride 107 mmol/L (98-107); Estimated Glomerular Filt Rate > 60; Glucose 175 mg/dL (65-110); Magnesium 2.2 mg/dL (1.6-2.3); Potassium 3.5 mmol/L (3.4-5.0); Sodium 138 mmol/L (137-145)
[2023-03-04] MEDS: OLANZapine DISPERTAB 5 MG PO (10:41)
[2023-03-04] MEDS: PALONOSETRON HCL 0.25 MG/5 ML VIAL IV PUSH (10:42)
[2023-03-04] MEDS: FOSAPREPITANT DIMEGLUMINE 150 MG in SODIUM CHLORIDE 0.9% IV 150 ML 300 MG IVPB (10:47)
[2023-03-04 12:23] VITALS: BP 136/56
[2023-03-04] MEDS: HEPARIN SODIUM LOCK FLUSH 500 UNITS/5 ML SYRINGE IV PUSH (12:31)
--- NOTE | 2023-03-05 15:30 | PC.NURSE ---
Called to follow-up with patient regarding new treatment started on 03/04/2023. Patient reports she is experiencing constipation. Patient was advised to try taking a stool softener, such as Dulcolax, and then a gentle laxative, such as Miralax, if the softener was not providing enough relief. Patient was also instructed to call Dr. Bee's office if she goes more than 3 days without a bowel movement. Patient verbalized understanding and denied any further questions at this time.
[2023-03-25 08:33] LABS: Basophils Absolute Auto 0.1 K/mm3 (0.0-0.1); Basophils Percent Auto 0.6 % (0.2-1.2); Eosinophils Absolute Auto 0.1 K/mm3 (0-0.3); Eosinophils Percent Auto 1.1 % (0-4.4); Hemoglobin 12.8 g/dL (12.0-15.0); Immature Granulocyte Absolute 0.46 K/mm3 (0.00-0.031); Immature Granulocyte Percent A 5.5 % (0-0.5); Lymphocytes Absolute Auto 2.56 K/mm3 (0.9-3.2); Lymphocytes Percent Auto 30.8 % (18.3-44.2); Mean Corpuscular Hemoglobin 30.5 pg (26-34); Mean Corpuscular Volume 95.2 fl (80-100); Mean Platelet Volume 8.2 fl (7.4-10.4); Monocytes Absolute Auto 1.2 K/mm3 (0.1-0.6); Monocytes Percent Auto 14.3 % (2.6-8.5); Neutrophils Percent Auto 47.7 % (45.5-73.1); Platelet Count Result 512 k/mm3 (150-375); Red Cell Distribution Width 14.6 % (11.5-14.5); White Blood Count 8.3 K/mm3 (4.5-10.0)
[2023-03-25 08:40] LABS: Blood Urea Nitrogen 19 mg/dL (8-26); Carbon Dioxide 24 mmol/L (22-30); Chloride 103 mmol/L (98-109); Estimated CRCL calculation 54 ml/min; Estimated Glomerular Filt Rate > 60; Glucose 121 mg/dL (70-105); Ionized Calcium (POC) 1.17 mmol/L (1.11-1.31); Potassium 3.4 mmol/L (3.5-4.9); Sodium 141 mmol/L (138-146)
[2023-03-25 10:00] LABS: Alanine Aminotransferase 20 U/L (6-35); Alkaline Phosphatase 58 U/L (38-126); Anion Gap 7 mmol/L (8-16); Aspartate Amino Transferase 28 U/L (14-36); Bilirubin,Total 0.4 mg/dL (0.2-1.3); Blood Urea Nitrogen 20 mg/dL (7-17); Calcium 9.3 mg/dL (8.4-10.2); Carbon Dioxide 28 mmol/L (22-30); Chloride 104 mmol/L (98-107); Estimated CRCL calculation 54 ml/min; Estimated Glomerular Filt Rate > 60; Glucose 118 mg/dL (65-110); Magnesium 2.2 mg/dL (1.6-2.3); Potassium 3.7 mmol/L (3.4-5.0); Sodium 139 mmol/L (137-145)
[2023-04-09 09:11] LABS: Basophils Percent Auto 0.1 % (0.2-1.2); Hematocrit 35.2 % (37.0-47.0); Hemoglobin 11.5 g/dL (12.0-15.0); Immature Granulocyte Absolute 0.11 K/mm3 (0.00-0.031); Immature Granulocyte Percent A 0.8 % (0-0.5); Lymphocytes Absolute Auto 0.87 K/mm3 (0.9-3.2); Lymphocytes Percent Auto 6.4 % (18.3-44.2); Mean Corpuscular HGB Conc 32.7 g/dl (32-36); Mean Corpuscular Hemoglobin 30.7 pg (26-34); Mean Corpuscular Volume 94.1 fl (80-100); Mean Platelet Volume 8.8 fl (7.4-10.4); Monocytes Absolute Auto 0.4 K/mm3 (0.1-0.6); Monocytes Percent Auto 2.9 % (2.6-8.5); Neutrophils Absolute Auto 12.3 K/mm3 (1.3-6.7); Neutrophils Percent Auto 89.8 % (45.5-73.1); Platelet Count Result 255 k/mm3 (150-375); Red Blood Count 3.74 M/mm3 (4.2-5.4); White Blood Count 13.7 K/mm3 (4.5-10.0)
[2023-04-09 09:16] LABS: Blood Urea Nitrogen 22 mg/dL (8-26); Carbon Dioxide 19 mmol/L (22-30); Chloride 105 mmol/L (98-109); Estimated CRCL calculation 54 ml/min; Estimated Glomerular Filt Rate > 60; Glucose 296 mg/dL (70-105); Ionized Calcium (POC) 1.26 mmol/L (1.11-1.31); Potassium 3.7 mmol/L (3.5-4.9); Sodium 138 mmol/L (138-146)
[2023-04-09 09:49] LABS: Add Urine Microscopic? YES; Appearance Urine Turbid (Clear); Bacteria Urine 4+ /hpf; Bilirubin Urine Negative (Negative); Blood Urine 3+ (Negative); Color Urine Dark Yellow (Yellow); Glucose Urine UA Negative (Negative); Ketones Urine Trace mg/dL (Negative); Leukocyte Esterase Ur 3+ LEU/UL (Negative); Need Manual Microscopic Reviewed; Nitrate Urine Positive (Negative); Protein Urine 3+ mg/dL (Negative); RBC Urine >100 /hpf (0-2); Specific Grav Ur 1.022 (1.001-1.035); Squamous Epithelial Cell Urine Few /hpf (Few); WBC Urine >100 /hpf
[2023-04-09] MEDS: HEPARIN SODIUM LOCK FLUSH 500 UNITS/5 ML SYRINGE (10:10)
[2023-04-09 10:28] LABS: Alkaline Phosphatase 62 U/L (38-126); Anion Gap 10 mmol/L (8-16); Aspartate Amino Transferase 28 U/L (14-36); Bilirubin,Total 0.5 mg/dL (0.2-1.3); Blood Urea Nitrogen 23 mg/dL (7-17); Calcium 9.1 mg/dL (8.4-10.2); Carbon Dioxide 21 mmol/L (22-30); Chloride 106 mmol/L (98-107); Estimated CRCL calculation 54 ml/min; Estimated Glomerular Filt Rate > 60; Glucose 289 mg/dL (65-110); Potassium 3.8 mmol/L (3.4-5.0); Sodium 137 mmol/L (137-145)
[2023-04-09 10:30] LABS: Alanine Aminotransferase 37 U/L (6-35)
[2023-04-23 11:33] LABS: Basophils Percent Auto 0.1 % (0.2-1.2); Eosinophils Percent Auto 0.1 % (0-4.4); Hematocrit 36.5 % (37.0-47.0); Immature Granulocyte Absolute 0.14 K/mm3 (0.00-0.031); Immature Granulocyte Percent A 0.9 % (0-0.5); Lymphocytes Absolute Auto 1.09 K/mm3 (0.9-3.2); Lymphocytes Percent Auto 6.9 % (18.3-44.2); Mean Corpuscular HGB Conc 32.9 g/dl (32-36); Mean Corpuscular Hemoglobin 31.2 pg (26-34); Mean Corpuscular Volume 94.8 fl (80-100); Mean Platelet Volume 8.9 fl (7.4-10.4); Monocytes Absolute Auto 0.8 K/mm3 (0.1-0.6); Monocytes Percent Auto 5.1 % (2.6-8.5); Neutrophils Absolute Auto 13.7 K/mm3 (1.3-6.7); Neutrophils Percent Auto 86.9 % (45.5-73.1); Platelet Count Result 283 k/mm3 (150-375); Red Blood Count 3.85 M/mm3 (4.2-5.4); Red Cell Distribution Width 15.3 % (11.5-14.5); White Blood Count 15.8 K/mm3 (4.5-10.0)
[2023-04-23 11:39] LABS: Blood Urea Nitrogen 18 mg/dL (8-26); Carbon Dioxide 23 mmol/L (22-30); Chloride 104 mmol/L (98-109); Estimated CRCL calculation 43 ml/min; Estimated Glomerular Filt Rate > 60; Glucose 221 mg/dL (70-105); Ionized Calcium (POC) 1.23 mmol/L (1.11-1.31); Potassium 3.3 mmol/L (3.5-4.9); Sodium 139 mmol/L (138-146)
[2023-04-23 12:08] LABS: Alanine Aminotransferase 19 U/L (6-35); Albumin Level 4.1 g/dL (3.5-5.1); Alkaline Phosphatase 58 U/L (38-126); Anion Gap 9 mmol/L (8-16); Aspartate Amino Transferase 27 U/L (14-36); Bilirubin,Total 0.4 mg/dL (0.2-1.3); Blood Urea Nitrogen 18 mg/dL (7-17); Calcium 9.4 mg/dL (8.4-10.2); Carbon Dioxide 23 mmol/L (22-30); Chloride 105 mmol/L (98-107); Estimated CRCL calculation 43 ml/min; Estimated Glomerular Filt Rate > 60; Glucose 220 mg/dL (65-110); Magnesium 1.7 mg/dL (1.6-2.3); Potassium 3.3 mmol/L (3.4-5.0); Sodium 137 mmol/L (137-145)
[2023-05-06 08:24] LABS: Basophils Absolute Auto 0.1 K/mm3 (0.0-0.1); Basophils Percent Auto 0.8 % (0.2-1.2); Eosinophils Absolute Auto 0.4 K/mm3 (0-0.3); Eosinophils Percent Auto 3.9 % (0-4.4); Hematocrit 37.9 % (37.0-47.0); Hemoglobin 12.1 g/dL (12.0-15.0); Immature Granulocyte Absolute 0.04 K/mm3 (0.00-0.031); Immature Granulocyte Percent A 0.4 % (0-0.5); Lymphocytes Absolute Auto 1.29 K/mm3 (0.9-3.2); Lymphocytes Percent Auto 13.8 % (18.3-44.2); Mean Corpuscular HGB Conc 31.9 g/dl (32-36); Mean Corpuscular Volume 97.2 fl (80-100); Mean Platelet Volume 8.5 fl (7.4-10.4); Monocytes Absolute Auto 0.6 K/mm3 (0.1-0.6); Monocytes Percent Auto 6.9 % (2.6-8.5); Neutrophils Absolute Auto 6.9 K/mm3 (1.3-6.7); Neutrophils Percent Auto 74.2 % (45.5-73.1); Platelet Count Result 238 k/mm3 (150-375); Red Cell Distribution Width 15.2 % (11.5-14.5); White Blood Count 9.3 K/mm3 (4.5-10.0)
[2023-05-06 08:32] LABS: Blood Urea Nitrogen 25 mg/dL (8-26); Carbon Dioxide 25 mmol/L (22-30); Chloride 104 mmol/L (98-109); Estimated CRCL calculation 48 ml/min; Estimated Glomerular Filt Rate > 60; Glucose 166 mg/dL (70-105); Potassium 3.8 mmol/L (3.5-4.9); Sodium 141 mmol/L (138-146)
[2023-05-06 14:48] LABS: Alanine Aminotransferase 15 U/L (6-35); Albumin Level 3.7 g/dL (3.5-5.1); Alkaline Phosphatase 49 U/L (38-126); Anion Gap 2 mmol/L (8-16); Aspartate Amino Transferase 21 U/L (14-36); Bilirubin,Total 0.4 mg/dL (0.2-1.3); Blood Urea Nitrogen 26 mg/dL (7-17); Calcium 9.1 mg/dL (8.4-10.2); Carbon Dioxide 28 mmol/L (22-30); Chloride 106 mmol/L (98-107); Estimated CRCL calculation 48 ml/min; Estimated Glomerular Filt Rate > 60; Glucose 169 mg/dL (65-110); Potassium 3.9 mmol/L (3.4-5.0); Sodium 136 mmol/L (137-145)
[2023-05-07 13:29] VITALS: BP 116/50; PULSE 74; TEMP 36.3; O2SAT 100
[2023-05-07] MEDS: PEMBROLIZUMAB 200 MG in SODIUM CHLORIDE 0.9% IV 100 ML 216 MG IVPB (13:46)
[2023-05-07 13:48] LABS: Magnesium 1.9 mg/dL (1.6-2.3)
[2023-05-07] MEDS: OLANZapine DISPERTAB 5 MG PO (14:29)
[2023-05-07] MEDS: PALONOSETRON HCL 0.25 MG/5 ML VIAL IV PUSH (14:30)
[2023-05-07] MEDS: FOSAPREPITANT DIMEGLUMINE 150 MG in SODIUM CHLORIDE 0.9% IV 150 ML 300 MG IVPB (14:32)
[2023-05-07] MEDS: CYANOCOBALAMIN INJ 1,000 MCG/ML VIAL 1000 MCG IM (14:36)
[2023-05-07 16:03] VITALS: BP 136/57
[2023-05-07] MEDS: HEPARIN SODIUM LOCK FLUSH 500 UNITS/5 ML SYRINGE IV PUSH (16:17)
[2023-05-28 11:47] LABS: Basophils Percent Auto 0.3 % (0.2-1.2); Eosinophils Percent Auto 0.2 % (0-4.4); Hematocrit 35.1 % (37.0-47.0); Hemoglobin 11.6 g/dL (12.0-15.0); Immature Granulocyte Absolute 0.13 K/mm3 (0.00-0.031); Immature Granulocyte Percent A 1.2 % (0-0.5); Lymphocytes Absolute Auto 1.42 K/mm3 (0.9-3.2); Lymphocytes Percent Auto 13.2 % (18.3-44.2); Mean Corpuscular Hemoglobin 31.7 pg (26-34); Mean Corpuscular Volume 95.9 fl (80-100); Mean Platelet Volume 8.8 fl (7.4-10.4); Monocytes Absolute Auto 1.2 K/mm3 (0.1-0.6); Monocytes Percent Auto 10.7 % (2.6-8.5); Neutrophils Percent Auto 74.4 % (45.5-73.1); Platelet Count Result 417 k/mm3 (150-375); Red Blood Count 3.66 M/mm3 (4.2-5.4); Red Cell Distribution Width 15.1 % (11.5-14.5); White Blood Count 10.8 K/mm3 (4.5-10.0)
[2023-05-28 11:56] LABS: Blood Urea Nitrogen 22 mg/dL (8-26); Carbon Dioxide 24 mmol/L (22-30); Chloride 103 mmol/L (98-109); Estimated CRCL calculation 48 ml/min; Estimated Glomerular Filt Rate > 60; Glucose 158 mg/dL (70-105); Ionized Calcium (POC) 1.17 mmol/L (1.11-1.31); Potassium 3.5 mmol/L (3.5-4.9); Sodium 137 mmol/L (138-146)
[2023-05-28 12:19] LABS: Alanine Aminotransferase 19 U/L (6-35); Albumin Level 4.1 g/dL (3.5-5.1); Alkaline Phosphatase 65 U/L (38-126); Anion Gap 8 mmol/L (8-16); Aspartate Amino Transferase 27 U/L (14-36); Bilirubin,Total 0.3 mg/dL (0.2-1.3); Blood Urea Nitrogen 22 mg/dL (7-17); Calcium 9.2 mg/dL (8.4-10.2); Carbon Dioxide 24 mmol/L (22-30); Chloride 103 mmol/L (98-107); Estimated CRCL calculation 48 ml/min; Estimated Glomerular Filt Rate > 60; Glucose 152 mg/dL (65-110); Potassium 3.6 mmol/L (3.4-5.0); Sodium 135 mmol/L (137-145)
[2023-05-28 12:41] VITALS: BP 134/59; PULSE 70; RESP 16; TEMP 36.7; O2SAT 95
[2023-05-28] MEDS: PEMBROLIZUMAB 200 MG in SODIUM CHLORIDE 0.9% IV 100 ML 216 MG IVPB (13:14)
[2023-05-28] MEDS: PALONOSETRON HCL 0.25 MG/5 ML VIAL IV PUSH (13:17)
[2023-05-28] MEDS: OLANZapine DISPERTAB 5 MG PO (14:11)
[2023-05-28] MEDS: CYANOCOBALAMIN INJ 1,000 MCG/ML VIAL 1000 MCG IM (14:11)
[2023-05-28] MEDS: FOSAPREPITANT DIMEGLUMINE 150 MG in SODIUM CHLORIDE 0.9% IV 150 ML 300 MG IVPB (14:22)
[2023-05-28] MEDS: HEPARIN SODIUM LOCK FLUSH 500 UNITS/5 ML SYRINGE IV PUSH (16:14)
[2023-05-28 16:15] VITALS: BP 117/44
[2023-06-24 08:33] LABS: Basophils Absolute Auto 0.1 K/mm3 (0.0-0.1); Basophils Percent Auto 0.7 % (0.2-1.2); Eosinophils Absolute Auto 0.2 K/mm3 (0-0.3); Eosinophils Percent Auto 1.7 % (0-4.4); Hematocrit 35.4 % (37.0-47.0); Hemoglobin 11.7 g/dL (12.0-15.0); Immature Granulocyte Absolute 0.12 K/mm3 (0.00-0.031); Immature Granulocyte Percent A 1.3 % (0-0.5); Lymphocytes Percent Auto 12.8 % (18.3-44.2); Mean Corpuscular HGB Conc 33.1 g/dl (32-36); Mean Corpuscular Hemoglobin 31.8 pg (26-34); Mean Corpuscular Volume 96.2 fl (80-100); Mean Platelet Volume 8.7 fl (7.4-10.4); Monocytes Absolute Auto 0.9 K/mm3 (0.1-0.6); Monocytes Percent Auto 9.1 % (2.6-8.5); Neutrophils Percent Auto 74.4 % (45.5-73.1); Platelet Count Result 254 k/mm3 (150-375); Red Blood Count 3.68 M/mm3 (4.2-5.4); Red Cell Distribution Width 15.5 % (11.5-14.5); White Blood Count 9.4 K/mm3 (4.5-10.0)
[2023-06-24 08:37] LABS: Blood Urea Nitrogen 9 mg/dL (8-26); Carbon Dioxide 21 mmol/L (22-30); Chloride 104 mmol/L (98-109); Estimated CRCL calculation 53 ml/min; Estimated Glomerular Filt Rate > 60; Glucose 235 mg/dL (70-105); Ionized Calcium (POC) 1.21 mmol/L (1.11-1.31); Potassium 3.4 mmol/L (3.5-4.9); Sodium 139 mmol/L (138-146)
[2023-06-24 09:54] LABS: Alanine Aminotransferase 13 U/L (6-35); Albumin Level 3.6 g/dL (3.5-5.1); Alkaline Phosphatase 58 U/L (38-126); Anion Gap 9 mmol/L (8-16); Aspartate Amino Transferase 22 U/L (14-36); Bilirubin,Total 0.4 mg/dL (0.2-1.3); Blood Urea Nitrogen 10 mg/dL (7-17); Carbon Dioxide 22 mmol/L (22-30); Chloride 105 mmol/L (98-107); Estimated CRCL calculation 53 ml/min; Estimated Glomerular Filt Rate > 60; Glucose 232 mg/dL (65-110); Magnesium 1.9 mg/dL (1.6-2.3); Potassium 3.6 mmol/L (3.4-5.0); Sodium 136 mmol/L (137-145)
[2023-06-24 11:05] LABS: Appearance Urine Turbid (Clear); Bacteria Urine 1+ /hpf; Bilirubin Urine Negative (Negative); Blood Urine 3+ (Negative); Color Urine Yellow (Yellow); Glucose Urine UA Negative (Negative); Ketones Urine Negative (Negative); Leukocyte Esterase Ur 3+ LEU/UL (NEGATIVE); Need Manual Microscopic Reviewed; Nitrate Urine Positive (Negative); Protein Urine 3+ mg/dL (Negative); RBC Urine 21-50 /hpf (0-2); Specific Grav Ur 1.011 (1.001-1.035); Squamous Epithelial Cell Urine Occasional /hpf (Few); Urobilinogen Urine 0.2 mg/dL (<2.0); WBC Urine >100 /hpf (0-3); pH Urine 6.5 (5.0-9.0)
[2023-06-24 11:07] LABS: Add Urine Microscopic? YES
[2023-07-29 08:56] LABS: Basophils Percent Auto 0.3 % (0.2-1.2); Eosinophils Absolute Auto 0.3 K/mm3 (0-0.3); Hematocrit 38.5 % (37.0-47.0); Hemoglobin 12.5 g/dL (12.0-15.0); Immature Granulocyte Absolute 0.06 K/mm3 (0.00-0.031); Immature Granulocyte Percent A 0.5 % (0-0.5); Lymphocytes Absolute Auto 0.83 K/mm3 (0.9-3.2); Lymphocytes Percent Auto 7.5 % (18.3-44.2); Mean Corpuscular HGB Conc 32.5 g/dl (32-36); Mean Corpuscular Hemoglobin 31.3 pg (26-34); Mean Corpuscular Volume 96.3 fl (80-100); Mean Platelet Volume 8.8 fl (7.4-10.4); Monocytes Percent Auto 9.1 % (2.6-8.5); Neutrophils Absolute Auto 8.9 K/mm3 (1.3-6.7); Neutrophils Percent Auto 79.6 % (45.5-73.1); Platelet Count Result 383 k/mm3 (150-375); Red Cell Distribution Width 14.2 % (11.5-14.5); White Blood Count 11.1 K/mm3 (4.5-10.0)
[2023-07-29 09:00] LABS: Blood Urea Nitrogen 13 mg/dL (8-26); Carbon Dioxide 23 mmol/L (22-30); Chloride 104 mmol/L (98-109); Estimated CRCL calculation 47 ml/min; Estimated Glomerular Filt Rate > 60; Glucose 149 mg/dL (70-105); Ionized Calcium (POC) 1.11 mmol/L (1.11-1.31); Potassium 3.5 mmol/L (3.5-4.9); Sodium 140 mmol/L (138-146)
[2023-07-29 10:06] LABS: Alanine Aminotransferase 13 U/L (6-35); Albumin Level 3.4 g/dL (3.5-5.1); Alkaline Phosphatase 60 U/L (38-126); Anion Gap 5 mmol/L (8-16); Aspartate Amino Transferase 22 U/L (14-36); Bilirubin,Total 0.5 mg/dL (0.2-1.3); Blood Urea Nitrogen 14 mg/dL (7-17); Calcium 8.9 mg/dL (8.4-10.2); Carbon Dioxide 25 mmol/L (22-30); Chloride 106 mmol/L (98-107); Estimated CRCL calculation 47 ml/min; Estimated Glomerular Filt Rate > 60; Glucose 150 mg/dL (65-110); Potassium 3.5 mmol/L (3.4-5.0); Sodium 136 mmol/L (137-145)
== END 2023-08-06 11:26 ==
LOC: AMCINF 08:44
PROVIDERS: PCP Student in an Organized Health Care Education/Training Program; Visit Provider Internal Medicine Hematology & Oncology
DX: C34.32 Malignant neoplasm of lower lobe, left bronchus or lung (principal); I10 Essential (primary) hypertension; I25.10 Atherosclerotic heart disease of native coronary artery without angina pectoris; I25.2 Old myocardial infarction; T45.1X5A Adverse effect of antineoplastic and immunosuppressive drugs, initial encounter; R11.0 Nausea; J44.9 Chronic obstructive pulmonary disease, unspecified; E78.5 Hyperlipidemia, unspecified; E11.9 Type 2 diabetes mellitus without complications; M06.9 Rheumatoid arthritis, unspecified; N31.9 Neuromuscular dysfunction of bladder, unspecified; N17.9 Acute kidney failure, unspecified; N13.9 Obstructive and reflux uropathy, unspecified; R33.9 Retention of urine, unspecified; F32.A Depression, unspecified; Z87.891 Personal history of nicotine dependence
CPT/HCPCS: 36415; 36592; 80047; 80053; 81001; 83735; 84443; 85025; 86480; 87077; 87086; 87186; 87340; 96367; 96368; 96372; 96375; 96411; 96413; 96417; A9270; J1100; J1453; J2469; J3420; J7060; J9045; J9271; J9305